=== PATIENT | male | born 1955 | race Caucasian/White ===

== ENCOUNTER → 2016-07-29 | Outpatient (CLI) | payer OTHER ==
[~2016-07-29] MED LIST: SULF800T23 PO
--- NOTE | 2016-07-29 09:00 | DIAGNOSTIC IMAGING REPORT ---
LEFT KNEE 1 OR 2 VIEWS ROUTINE CLINICAL HISTORY: Left knee pain COMPARISON: None. DISCUSSION: There are osteoarthritic changes present with narrowing medial joint compartment. There are medial joint compartment spurs. There are tiny dorsal patellar spurs. There are no acute fractures. There are no erosive or destructive changes. IMPRESSION: Moderate osteoarthritic change. Electronically signed by: Ron Haynes M.D. 07/29/2016 8:59 AM Dictated Date/Time: 07/29/2016 8:58 AM
--- NOTE | 2016-07-29 09:01 | DIAGNOSTIC IMAGING REPORT ---
RIGHT KNEE 1 OR 2 VIEWS ROUTINE CLINICAL HISTORY: Right knee pain COMPARISON: None. DISCUSSION: There is marked narrowing of the medial joint compartment. This results in a mild varus deformity. There are medial and lateral joint compartment spurs. There are small dorsal patellar spurs. There are no acute fractures. No destructive lesions are evident. IMPRESSION: Moderately advanced osteoarthritic change. Electronically signed by: Ron Haynes M.D. 07/29/2016 8:59 AM Dictated Date/Time: 07/29/2016 8:59 AM
[2016-07-29 11:26] LABS: ALT/SGPT 41 U/L (12-78); BLOOD UREA NITROGEN 18 mg/dl (7-18); CALCIUM 8.7 mg/dl (8.5-10.1); CARBON DIOXIDE 24 mmol/L (21-32); CHLORIDE 106 mmol/L (98-107); GLUCOSE 115 mg/dl (70-99); SODIUM 137 mmol/L (136-145)
[2016-07-29 11:27] LABS: ESTIMATED AVERAGE GLUCOSE 123 mg/dl; HA1C FLAG Normal (Normal)
[2016-07-29 11:29] LABS: ALB/GLOB RATIO 1.1 (0.9-2); ALKALINE PHOSPHATASE 74 U/L (45-117); AST/SGOT 30 U/L (15-37)
== END | disposition home or self-care (01) ==
LOC: C.RADBC 08:21
PROVIDERS: ATTEND Family Medicine
DX: M25.561 Pain in right knee (principal); M25.562 Pain in left knee; I10 Essential (primary) hypertension; R73.03 Prediabetes

== ENCOUNTER → 2017-02-18 | Outpatient (CLI) | payer OTHER ==
[2017-02-18 11:11] LABS: HEMATOCRIT 44.9 % (42-52); MEAN CELL VOLUME 89.3 fL (80-100); MEAN CORPUSCULAR HEMOGLOBIN 28.8 pg (25-34); MEAN CORPUSCULAR HGB CONC 32.3 g/dl (32-36); MEAN PLATELET VOLUME 12.2 fL (7.4-10.4); PLATELET COUNT 212 K/uL (130-400); RED BLOOD COUNT 5.03 M/uL (4.7-6.1); WHITE BLOOD COUNT 6.23 K/uL (4.8-10.8)
[2017-02-18 11:30] LABS: ALT/SGPT 47 U/L (12-78); AST/SGOT 36 U/L (15-37); BLOOD UREA NITROGEN 19 mg/dl (7-18); BUN/CREATININE RATIO 22.3 (10-20); CALCIUM 8.9 mg/dl (8.5-10.1); CARBON DIOXIDE 27 mmol/L (21-32); CHLORIDE 106 mmol/L (98-107); CHOLESTEROL 136 mg/dl (0-200); CREATININE 0.87 mg/dl (0.60-1.40); GLUCOSE 112 mg/dl (70-99); POTASSIUM 4.3 mmol/L (3.5-5.1); SODIUM 139 mmol/L (136-145); TRIGLYCERIDES 39 mg/dl (0-150); VERY LOW DENSITY LIPOPROT CALC 8 mg/dl
[2017-02-18 11:32] LABS: ALB/GLOB RATIO 1.2 (0.9-2); ALKALINE PHOSPHATASE 74 U/L (45-117); CHOLESTEROL/HDL RATIO 2.7; ESTIMATED AVERAGE GLUCOSE 123 mg/dl; HA1C FLAG Normal (Normal); HDL CHOLESTEROL 51 mg/dl; LDL CHOLESTEROL CALCULATED 77 mg/dl
== END | disposition home or self-care (01) ==
LOC: C.LABBC 07:36
PROVIDERS: ATTEND Internal Medicine
DX: Z00.00 Encounter for general adult medical examination without abnormal findings (principal); I10 Essential (primary) hypertension; R73.03 Prediabetes

== ENCOUNTER → 2017-08-15 | Outpatient (CLI) | payer OTHER | END | disposition home or self-care (01) | LOC: C.LAB 18:33 | PROVIDERS: ATTEND Internal Medicine | DX: R73.03 Prediabetes (principal) ==

== ENCOUNTER 2020-08-13 08:29 | Inpatient (IN) ==
[2020-08-13] MEDS ORDERED: SODIUM CHLORIDE 0.9% 1000ML 1,000 ML IV STA (09:37)
[2020-08-13] MEDS ORDERED: ACETAMINOPHEN 1000 MG/100 ML IV IV STA (09:40)
--- NOTE | 2020-08-13 09:55 | Emergency Department Note ---
History of Present Illness General Chief complaint: Shortness of Breath/Dyspnea Stated complaint: COVID+, SOB, LOW OXYGEN LEVEL Time Seen by Provider: 08/13/20 09:12 History of Present Illness 65-year-old male who presents to emergency department with complaint of symptoms of COVID-19, including cough, fever/chills and headache. These are the patient's primary complaints, however also complains of fatigue and overall not feeling well. The patient reports that he has had symptoms now for 8 days. He reports any increasing shortness of breath and intermittent fevers. His bought him a pulse oximeter at home, and noted that his oxygen levels were varying between about 83% and 93% on room air. The patient has been taking Tylenol, Mucinex and guaifenesin without significant relief. The patient has not had a COVID-19 test since symptom onset. He rates his overall discomfort a 3 out of 10. He denies any chest pain, abdominal pain, diarrhea or urinary symptoms. Home Medications Medication Instructions Recorded Confirmed Type Centrum Silver Men 1 tab PO QAM 02/27/19 08/13/20 History losartan 50 mg tablet 50 mg PO QAM #90 tab 06/08/20 08/13/20 Rx mupirocin 2 % topical ointment 1 applic TOP BID PRN gm 06/24/20 08/13/20 History Allergies Allergy/AdvReac Type Severity Reaction Status Date / Time Sulfa (Sulfonamide Allergy Unknown HIVES ON Verified 08/13/20 09:49 Antibiotics) BACK Past Med/Surg History Medical History Degenerative disc disease Lumbar Diverticulosis Hypertension Osteoarthritis B/L knee and Lumbar Osteoporosis pt denies Tubular adenoma of colon Screening colonoscopy (03/23) w/ tubular adenoma x2. Recommended repeat colonoscopy in 5 years (03/2024) Surgical History H/O colonoscopy H/O hand surgery right- 3rd phalanx (r/t infection) History of esophagogastroduodenoscopy (EGD) History of tooth extraction History of total knee replacement (~2017) RT Hx of vasectomy S/P left inguinal hernia repair (07/20/20) Left Open Inguinal Hernia Repair with Prolite and Bard Mesh Dr. 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 Beliefs That Will Affect Care: None marital status: Current Living Situation: Spouse current occupational status: employed How many Children do You have: 2 Feels Safe at Home: Yes Dental Care, Regularly: Yes Physical Activity Frequency: Does not Exercise Assistive Devices: Glasses Review of Systems 10 system review was performed and was negative except for pertinent positives and negatives as indicated in history of present illness Physical Exam Vital Signs Vital Signs - 24 hr 08/13/20 08:48 08/13/20 09:37 08/13/20 10:52 Temperature 36.9 C Temperature Source Temporal Artery Scan Pulse Rate 111 H 91 H Pulse Rate from SpO2 Sensor 93 H Respiratory Rate 18 27 H Respiratory Effort / Characteristics Blood Pressure 127/77 116/73 Blood Pressure Mean 93 87 Pulse Oximetry 94 90 90 Oxygen Delivery Method Room Air Room Air Room Air Oxygen Flow Rate Sepsis Recent Fever Within 48 Hours Yes Sepsis New/Unexplained Change in Mental Status N/A Sepsis Action Taken by Nursing No Action Required 08/13/20 10:53 08/13/20 11:00 08/13/20 11:15 Temperature Temperature Source Pulse Rate 90 94 H Pulse Rate from SpO2 Sensor 90 94 H Respiratory Rate 36 H 23 Respiratory Effort / Characteristics Non-Labored Spontaneous Blood Pressure 131/78 115/70 Blood Pressure Mean 95 85 Pulse Oximetry 93 89 L 95 Oxygen Delivery Method Room Air Nasal Cannula Oxygen Flow Rate 2 Sepsis Recent Fever Within 48 Hours Sepsis New/Unexplained Change in Mental Status Sepsis Action Taken by Nursing 08/13/20 11:30 08/13/20 11:45 08/13/20 12:00 Temperature Temperature Source Pulse Rate 85 85 Pulse Rate from SpO2 Sensor 85 Respiratory Rate 31 H 40 H 40 H Respiratory Effort / Characteristics Non-Labored Spontaneous Blood Pressure 114/64 124/61 Blood Pressure Mean 80 82 Pulse Oximetry 95 97 97 Oxygen Delivery Method Nasal Cannula Nasal Cannula Nasal Cannula Oxygen Flow Rate 2 2 2 Sepsis Recent Fever Within 48 Hours Sepsis New/Unexplained Change in Mental Status Sepsis Action Taken by Nursing 08/13/20 12:30 08/13/20 12:51 08/13/20 13:00 Temperature Temperature Source Pulse Rate 79 82 88 Pulse Rate from SpO2 Sensor 80 82 88 Respiratory Rate 30 H 26 H 23 Respiratory Effort / Characteristics Spontaneous Blood Pressure 111/70 123/79 125/76 Blood Pressure Mean 83 93 92 Pulse Oximetry 91 95 96 Oxygen Delivery Method Oxygen Flow Rate Sepsis Recent Fever Within 48 Hours Sepsis New/Unexplained Change in Mental Status Sepsis Action Taken by Nursing 08/13/20 14:00 08/13/20 14:13 08/13/20 14:30 Temperature Temperature Source Pulse Rate 82 78 73 Pulse Rate from SpO2 Sensor 81 79 73 Respiratory Rate 29 H 13 28 H Respiratory Effort / Characteristics Spontaneous Spontaneous Blood Pressure 92/50 L 109/73 126/71 Blood Pressure Mean 64 85 89 Pulse Oximetry 94 95 94 Oxygen Delivery Method Oxygen Flow Rate Sepsis Recent Fever Within 48 Hours Sepsis New/Unexplained Change in Mental Status Sepsis Action Taken by Nursing 08/13/20 15:00 08/13/20 15:30 08/13/20 16:00 Temperature Temperature Source Pulse Rate 76 76 75 Pulse Rate from SpO2 Sensor 76 76 75 Respiratory Rate 33 H 29 H 26 H Respiratory Effort / Characteristics Blood Pressure 116/69 103/56 L 98/51 L Blood Pressure Mean 84 71 66 Pulse Oximetry 93 96 92 Oxygen Delivery Method Oxygen Flow Rate Sepsis Recent Fever Within 48 Hours Sepsis New/Unexplained Change in Mental Status Sepsis Action Taken by Nursing CONSTITUTIONAL: Healthy and well nourished. Alert and oriented X 3. Patient is tachypneic with a frequent nonproductive cough. HEENT: Normocephalic, atraumatic. Pupils equal, round and reactive. Ears and nares are clear. Examination of the oropharynx shows dry mucous membranes. No posterior pharyngeal erythema, tonsillar hypertrophy or exudates. NECK: Full active range of motion without discomfort. No JVD or carotid bruits. LYMPHATICS: No cervical chain adenopathy. RESPIRATORY: Clear to auscultation bilaterally with no wheezing, crackles, rhonchi or stridor. CARDIOVASCULAR: Regular rate and rhythm with no murmurs, rubs or gallops. GASTROINTESTINAL: Bowel sounds present in all quadrants. Soft and nontender to palpation. MUSCULOSKELETAL: Full range of motion of all joints without discomfort. INTEGUMENTARY: No rash or other significant dermatologic conditions noted. HEMATOLOGIC: No ecchymosis or petechiae. PSYCHIATRIC: Positive affect. NEUROLOGIC: Cranial nerves II-XII grossly intact. No focal neurologic deficits noted. Course Course Patient history and physical exam were performed. Nurses notes were reviewed. Vital signs were reviewed, again showing that the patient is tachypneic. His O2 saturation was 94% on room air in triage. He is not febrile or hypotensive. IV access was established, and labs were drawn. The patient was hydrated with a liter of normal saline. He was also ministered IV Tylenol for his headache. An ECG was performed and was normal. The patient was placed on quality assurance monitor final while in the emergency department. Labs were reviewed to show a mild thrombocytopenia with normal white count. Coagulation studies shows a mildly elevated PTT, otherwise PT/INR are normal. Sodium is low at 131, otherwise remaining electrolytes are grossly normal. Patient also has an isolated elevated AST of 68, with ALT, alkaline phosphatase and total bilirubin being normal. Urinalysis is not suggestive of infection with proteinuria, ketonuria and hematuria. Cephaiad testing shows that the patient is positive for COVID- 19, negative for influenza and RSV. A portable chest x-ray shows multifocal pneumonia. Troponin was normal. It is noted that while the patient was coughing, nursing reported that the patient's O2 saturation did drop to 88% on room air. The patient was administer ed O2 via nasal cannula at 2 L/min, and maintain his oxygen saturations in the mid 90s throughout the remainder of his ED evaluation. He still continued to be tachypneic. Findings were discussed with the patient, as well as his via telephone conversation as she was not allowed in his room during the work-up. I also discussed the case further with Dr. Hunt, ED attending physician, who park mmended consulting the hospitalist service for multifocal pneumonia with hypoxia, tachypnea and hyponatremia. The case was then discussed with the [facility] Hospitalist service, who will evaluate the patient. The patient was ordered and administered Decadron 10 mg IVP. Please see hospitalist dictations for further treatment and final disposition. Administered Medications Discontinued Medications Acetaminophen (Acetaminophen 1000 Mg/100 Ml Iv) 1,000 mg IV NOW STA Stop: 08/13/20 09:41 Last Admin: 08/13/20 10:59 Dose: 1,000 mg Documented by: [id number] Dexamethasone (Dexamethasone Sod Inj 10 Mg/Ml Vial) 10 mg IV NOW ONE Stop: 08/13/20 12:43 Last Admin: 08/13/20 14:10 Dose: 10 mg Documented by: [id number] Sodium Chloride (Nss 1000ml) 1,000 mls @ 999 mls/hr IV .Q1H1M STA Stop: 08/13/20 10:37 Last Infusion: 08/13/20 12:03 Dose: 0 mls/hr Documented by: [id number] Admin: 08/13/20 10:59 Dose: 999 mls/hr Documented by: [id number] Medical Decision Making Medical Records Attestation: I reviewed the patient's medical records. Home Medications Current Medication List: was personally reviewed by me Laboratory Data Attestation: I reviewed the patient's lab results. Result diagrams: 08/13/20 09:56 08/13/20 09:56 Lab Results 08/13/20 08/13/20 08/13/20 Range/Units 09:56 09:56 09:56 WBC 6.43 (4.8-10.8) K/uL RBC 5.35 (4.7-6.1) M/uL Hgb 15.6 (14.0-18.0) g/dL Hct 45.4 (42-52) % MCV 84.9 (80-100) fL MCH 29.2 (25-34) pg MCHC 34.4 (32-36) g/dL RDW Std Deviation 39.9 (36.4-46.3) fL RDW Coeff of Judd 12.8 (11.5-14.5) % Plt Count 128 L (130-400) K/uL MPV 11.4 H (7.4-10.4) fL Immature Gran % (Auto) 0.3 % Neut % (Auto) 86.2 % Lymph % (Auto) 8.9 % [place] % (Auto) 4.4 % Eos % (Auto) 0.0 % Baso % (Auto) 0.2 % Neut # (Auto) 5.55 (1.4-6.5) K/uL Lymph # (Auto) 0.57 L (1.2-3.4) K/uL [place] # (Auto) 0.28 (0.11-0.59) K/uL Eos # (Auto) 0.00 (0-0.5) K/uL Baso # (Auto) 0.01 (0-0.2) K/uL Immature Gran # (Auto) 0.02 (0.00-0.02) K/uL PT 10.5 (9.0-12.0) Seconds INR 1.0 (0.9-1.1) APTT 31.4 H (21.0-31.0) Seconds PTT Ratio 1.2 Fibrinogen (184-400) mg/dl Sodium 131 L (136-145) mmol/L Potassium 3.5 (3.5-5.1) mmol/L Chloride 98 (98-107) mmol/L Carbon Dioxide 24 (21-32) mmol/L Anion Gap 8.0 (3-11) BUN 15 (7-18) mg/dl Creatinine 1.03 (0.6-1.4) mg/dl Est Cr Clr Drug Dosing 88.8 ml/min Est GFR ( Amer) 88.6 Est GFR (Non-Af Amer) 76.4 BUN/Creatinine Ratio 14.3 (10-20) Glucose 109 H (70-99) mg/dl Lactate (0.4-2.0) mmol/L Calcium 9.1 (8.5-10.1) mg/dl Magnesium 2.1 (1.8-2.4) mg/dl Total Bilirubin 0.8 (0.2-1) mg/dl AST 68 H (15-37) U/L ALT 42 (12-78) U/L Alkaline Phosphatase 72 (45-117) U/L Lactate Dehydrogenase (87-241) U/L Troponin I 0.016 (0-0.045) ng/ml C-Reactive Protein (0-0.29) mg/dl Total Protein 7.3 (6.4-8.2) gm/dl Albumin 3.5 (3.4-5.0) gm/dl Globulin 3.8 (2.5-4.0) gm/dl Albumin/Globulin Ratio 0.9 (0.9-2) Procalcitonin (0-0.5) ng/ml Urine Color Urine Appearance (Clear) Urine pH (4.5-7.5) Ur Specific [place] (1.000-1.030) Urine Protein (Negative) Urine Glucose (UA) (Negative) Urine Ketones (Negative) Urine Blood (Negative) Urine Nitrite (Negative) Urine Bilirubin (Negative) Urine Urobilinogen (Negative) Ur Leukocyte Esterase (Negative) Urine WBC (Auto) (0-5) /hpf Urine RBC (Auto) (0-4) /hpf U Hyaline Cast (Auto) (0-5) /lpf U Epithel Cells (Auto) (0-5) /lpf Urine Bacteria (Auto) (Negative) COVID-19 Eval Order SARS-CoV-2 (PCR) (Negative) Influenza Type A (PCR) (Neg) Influenza Type B (PCR) (Neg) RSV (RT-PCR) (Neg) 08/13/20 08/13/20 08/13/20 Range/Units 09:56 09:56 10:45 WBC (4.8-10.8) K/uL RBC (4.7-6.1) M/uL Hgb (14.0-18.0) g/dL Hct (42-52) % MCV (80-100) fL MCH (25-34) pg MCHC (32-36) g/dL RDW Std Deviation (36.4-46.3) fL RDW Coeff of Judd (11.5-14.5) % Plt Count (130-400) K/uL MPV (7.4-10.4) fL Immature Gran % (Auto) % Neut % (Auto) % Lymph % (Auto) % [place] % (Auto) % Eos % (Auto) % Baso % (Auto) % Neut # (Auto) (1.4-6.5) K/uL Lymph # (Auto) (1.2-3.4) K/uL [place] # (Auto) (0.11-0.59) K/uL Eos # (Auto) (0-0.5) K/uL Baso # (Auto) (0-0.2) K/uL Immature Gran # (Auto) (0.00-0.02) K/uL PT (9.0-12.0) Seconds INR (0.9-1.1) APTT (21.0-31.0) Seconds PTT Ratio Fibrinogen (184-400) mg/dl Sodium (136-145) mmol/L Potassium (3.5-5.1) mmol/L Chloride (98-107) mmol/L Carbon Dioxide (21-32) mmol/L Anion Gap (3-11) BUN (7-18) mg/dl Creatinine (0.6-1.4) mg/dl Est Cr Clr Drug Dosing ml/min Est GFR ( Amer) Est GFR (Non-Af Amer) BUN/Creatinine Ratio (10-20) Glucose (70-99) mg/dl Lactate 1.5 (0.4-2.0) mmol/L Calcium (8.5-10.1) mg/dl Magnesium (1.8-2.4) mg/dl Total Bilirubin (0.2-1) mg/dl AST (15-37) U/L ALT (12-78) U/L Alkaline Phosphatase (45-117) U/L Lactate Dehydrogenase (87-241) U/L Troponin I (0-0.045) ng/ml C-Reactive Protein (0-0.29) mg/dl Total Protein (6.4-8.2) gm/dl Albumin (3.4-5.0) gm/dl Globulin (2.5-4.0) gm/dl Albumin/Globulin Ratio (0.9-2) Procalcitonin 0.12 (0-0.5) ng/ml Urine Color Urine Appearance (Clear) Urine pH (4.5-7.5) Ur Specific [place] (1.000-1.030) Urine Protein (Negative) Urine Glucose (UA) (Negative) Urine Ketones (Negative) Urine Blood (Negative) Urine Nitrite (Negative) Urine Bilirubin (Negative) Urine Urobilinogen (Negative) Ur Leukocyte Esterase (Negative) Urine WBC (Auto) (0-5) /hpf Urine RBC (Auto) (0-4) /hpf U Hyaline Cast (Auto) (0-5) /lpf U Epithel Cells (Auto) (0-5) /lpf Urine Bacteria (Auto) (Negative) COVID-19 Eval Order [facility]FluRsv at [facility] SARS-CoV-2 (PCR) (Negative) Influenza Type A (PCR) (Neg) Influenza Type B (PCR) (Neg) RSV (RT-PCR) (Neg) 08/13/20 08/13/20 08/13/20 Range/Units 10:45 12:47 15:34 WBC (4.8-10.8) K/uL RBC (4.7-6.1) M/uL Hgb (14.0-18.0) g/dL Hct (42-52) % MCV (80-100) fL MCH (25-34) pg MCHC (32-36) g/dL RDW Std Deviation (36.4-46.3) fL RDW Coeff of Judd (11.5-14.5) % Plt Count (130-400) K/uL MPV (7.4-10.4) fL Immature Gran % (Auto) % Neut % (Auto) % Lymph % (Auto) % [place] % (Auto) % Eos % (Auto) % Baso % (Auto) % Neut # (Auto) (1.4-6.5) K/uL Lymph # (Auto) (1.2-3.4) K/uL [place] # (Auto) (0.11-0.59) K/uL Eos # (Auto) (0-0.5) K/uL Baso # (Auto) (0-0.2) K/uL Immature Gran # (Auto) (0.00-0.02) K/uL PT (9.0-12.0) Seconds INR (0.9-1.1) APTT (21.0-31.0) Seconds PTT Ratio Fibrinogen 531 H (184-400) mg/dl Sodium (136-145) mmol/L Potassium (3.5-5.1) mmol/L Chloride (98-107) mmol/L Carbon Dioxide (21-32) mmol/L Anion Gap (3-11) BUN (7-18) mg/dl Creatinine (0.6-1.4) mg/dl Est Cr Clr Drug Dosing ml/min Est GFR ( Amer) Est GFR (Non-Af Amer) BUN/Creatinine Ratio (10-20) Glucose (70-99) mg/dl Lactate (0.4-2.0) mmol/L Calcium (8.5-10.1) mg/dl Magnesium (1.8-2.4) mg/dl Total Bilirubin (0.2-1) mg/dl AST (15-37) U/L ALT (12-78) U/L Alkaline Phosphatase (45-117) U/L Lactate Dehydrogenase (87-241) U/L Troponin I (0-0.045) ng/ml C-Reactive Protein (0-0.29) mg/dl Total Protein (6.4-8.2) gm/dl Albumin (3.4-5.0) gm/dl Globulin (2.5-4.0) gm/dl Albumin/Globulin Ratio (0.9-2) Procalcitonin (0-0.5) ng/ml Urine Color Dark Yellow Urine Appearance Clear (Clear) Urine pH 5.5 (4.5-7.5) Ur Specific [place] 1.024 (1.000-1.030) Urine Protein 2+ H (Negative) Urine Glucose (UA) Negative (Negative) Urine Ketones 3+ H (Negative) Urine Blood 1+ H (Negative) Urine Nitrite Negative (Negative) Urine Bilirubin Negative (Negative) Urine Urobilinogen Negative (Negative) Ur Leukocyte Esterase Negative (Negative) Urine WBC (Auto) 1-5 (0-5) /hpf Urine RBC (Auto) 5-10 H (0-4) /hpf U Hyaline Cast (Auto) 10-30 H (0-5) /lpf U Epithel Cells (Auto) 20-30 H (0-5) /lpf Urine Bacteria (Auto) Negative (Negative) COVID-19 Eval Order SARS-CoV-2 (PCR) POSITIVE A* (Negative) Influenza Type A (PCR) Negative (Neg) Influenza Type B (PCR) Negative (Neg) RSV (RT-PCR) Negative (Neg) 08/13/20 08/13/20 Range/Units 15:34 15:34 WBC (4.8-10.8) K/uL RBC (4.7-6.1) M/uL Hgb (14.0-18.0) g/dL Hct (42-52) % MCV (80-100) fL MCH (25-34) pg MCHC (32-36) g/dL RDW Std Deviation (36.4-46.3) fL RDW Coeff of Judd (11.5-14.5) % Plt Count (130-400) K/uL MPV (7.4-10.4) fL Immature Gran % (Auto) % Neut % (Auto) % Lymph % (Auto) % [place] % (Auto) % Eos % (Auto) % Baso % (Auto) % Neut # (Auto) (1.4-6.5) K/uL Lymph # (Auto) (1.2-3.4) K/uL [place] # (Auto) (0.11-0.59) K/uL Eos # (Auto) (0-0.5) K/uL Baso # (Auto) (0-0.2) K/uL Immature Gran # (Auto) (0.00-0.02) K/uL PT (9.0-12.0) Seconds INR (0.9-1.1) APTT (21.0-31.0) Seconds PTT Ratio Fibrinogen (184-400) mg/dl Sodium (136-145) mmol/L Potassium (3.5-5.1) mmol/L Chloride (98-107) mmol/L Carbon Dioxide (21-32) mmol/L Anion Gap (3-11) BUN (7-18) mg/dl Creatinine (0.6-1.4) mg/dl Est Cr Clr Drug Dosing ml/min Est GFR ( Amer) Est GFR (Non-Af Amer) BUN/Creatinine Ratio (10-20) Glucose (70-99) mg/dl Lactate (0.4-2.0) mmol/L Calcium (8.5-10.1) mg/dl Magnesium (1.8-2.4) mg/dl Total Bilirubin (0.2-1) mg/dl AST (15-37) U/L ALT (12-78) U/L Alkaline Phosphatase (45-117) U/L Lactate Dehydrogenase 373 H (87-241) U/L Troponin I (0-0.045) ng/ml C-Reactive Protein 10.20 H (0-0.29) mg/dl Total Protein (6.4-8.2) gm/dl Albumin (3.4-5.0) gm/dl Globulin (2.5-4.0) gm/dl Albumin/Globulin Ratio (0.9-2) Procalcitonin (0-0.5) ng/ml Urine Color Urine Appearance (Clear) Urine pH (4.5-7.5) Ur Specific [place] (1.000-1.030) Urine Protein (Negative) Urine Glucose (UA) (Negative) Urine Ketones (Negative) Urine Blood (Negative) Urine Nitrite (Negative) Urine Bilirubin (Negative) Urine Urobilinogen (Negative) Ur Leukocyte Esterase (Negative) Urine WBC (Auto) (0-5) /hpf Urine RBC (Auto) (0-4) /hpf U Hyaline Cast (Auto) (0-5) /lpf U Epithel Cells (Auto) (0-5) /lpf Urine Bacteria (Auto) (Negative) COVID-19 Eval Order SARS-CoV-2 (PCR) (Negative) Influenza Type A (PCR) (Neg) Influenza Type B (PCR) (Neg) RSV (RT-PCR) (Neg) Imaging Data Attestation: I personally reviewed and interpreted this imaging study as follows: My Impression: My interpretation of reportable chest x-ray is concerning for multifocal pneumonia, consistent with pattern of COVID-19. No cardiac prominence or pneumothorax appreciated. Radiologist report was also reviewed. Radiologist's Impression: XR chest 1V portable CLINICAL HISTORY: SEPSIS COMPARISON STUDY: 11/05/2009 FINDINGS: The heart is the upper limits of normal in size. There is aortic tortuosity/ectasia. There are bilateral interstitial opacities suspicious for a multifocal pneumonia. Clinical and radiographic follow-up is recommended.[ IMPRESSION: Interval development of bilateral interstitial pulmonary opacities, suspicious for a multifocal pneumonia. Clinical and radiographic follow-up is recommended ECG Data Attestation: I personally reviewed and interpreted this ECG as follows: Indication: + chest pain, + SOB/dyspnea and + weakness Rate (beats per minute): 95 Rhythm: + normal sinus ECG Intervals/blocks: + Normal QRS ECG [place]: + Normal ECG ST segments: + Normal ST segments Comparison ECG Date: from (07/09/2020) Change: no significant change Blood Pressure Blood Pressure Findings: Normal blood pressure MDM Narrative Cardiac monitoring: An order was placed for continuous cardiac monitoring. The monitor shows a rate of 95 bpm with a normal sinus rhythm. monitor worker history was reviewed throughout the evaluation, and no dysrhythmias were noted. Patient presents emergency department with primary complaint of cough secondary to an upper respiratory infection. The patient has tested positive today for COVID-19. He has a multifocal pneumonia with hypoxia and tachypnea. I do not feel that the patient is stable for outpatient management. I do not suspect any other acute cardiopulmonary etiologies, such as myocardial infarction, pulmonary embolus, CHF, pericarditis or myocarditis. Troponin was normal. Impression & Plan Multifocal pneumonia, COVID-19 virus infection, Acute hyponatremia Discharge Plan Visit Data Chief Complaint: Shortness of Breath/Dyspnea Stated Complaint: COVID+, SOB, LOW OXYGEN LEVEL ED Provider: Dru Hunt ED Midlevel Provider: Aram Ramirez Discharge Problem: Multifocal pneumonia, COVID-19 virus infection, Acute hyponatremia Forms Stand Alone Forms: My [facility] [employer] Prescriptions Prescriptions: No Action losartan 50 mg tablet 50 mg PO QAM Qty: 90 RF: 3 mupirocin 2 % ointment 1 applic TOP BID PRN (Reason: Skin Irritation) RF: 0 Centrum Silver Men 300-600-300 mcg Tablet 1 tab PO QAM RF: 0
[2020-08-13 10:13] LABS: Basophils # (auto) 0.01 K/uL (0-0.2); Basophils % (auto) 0.2 %; Hematocrit (blood only) 45.4 % (42-52); Hemoglobin 15.6 g/dL (14.0-18.0); Immature Granulocytes # (auto) 0.02 K/uL (0.00-0.02); Immature Granulocytes % (auto) 0.3 %; Lymphocytes # (auto) 0.57 K/uL (1.2-3.4); Lymphocytes % (auto) 8.9 %; Mean Corpuscular Hemoglobin 29.2 pg (25-34); Mean Corpuscular Hgb Conc 34.4 g/dL (32-36); Mean Corpuscular Volume 84.9 fL (80-100); Mean Platelet Volume 11.4 fL (7.4-10.4); Monocytes # (auto) 0.28 K/uL (0.11-0.59); Monocytes % (auto) 4.4 %; Neutrophils # (auto) 5.55 K/uL (1.4-6.5); Neutrophils % (auto) 86.2 %; Platelet Count 128 K/uL (130-400); RDW Coefficient of Variation 12.8 % (11.5-14.5); RDW Standard Deviation 39.9 fL (36.4-46.3); Red Blood Count 5.35 M/uL (4.7-6.1); White Blood Count 6.43 K/uL (4.8-10.8)
--- NOTE | 2020-08-13 10:19 | XRay Report ---
XR chest 1V portable CLINICAL HISTORY: SEPSIS COMPARISON STUDY: 11/05/2009 FINDINGS: The heart is the upper limits of normal in size. There is aortic tortuosity/ectasia. There are bilateral interstitial opacities suspicious for a multifocal pneumonia. Clinical and radiographic follow-up is recommended.[ IMPRESSION: Interval development of bilateral interstitial pulmonary opacities, suspicious for a mult ifocal pneumonia. Clinical and radiographic follow-up is recommended ACT 112: Negative or not required by law. Electronically signed by: Ron Haynes M.D. 08/13/2020 10:18 AM
[2020-08-13 10:22] LABS: Partial Thromboplastin Ratio 1.2; Partial Thromboplastin Time 31.4 Seconds (21.0-31.0); Prothrombin Time 10.5 Seconds (9.0-12.0)
[2020-08-13 10:26] LABS: Albumin Level 3.5 gm/dl (3.4-5.0); BUN Creatinine Ratio 14.3 (10-20); Calcium 9.1 mg/dl (8.5-10.1); Creatinine Clr Calc Pharmacy 88.8 ml/min; Est GFR (African American) 88.6; Est GFR (Non-African American) 76.4; Magnesium 2.1 mg/dl (1.8-2.4); Potassium 3.5 mmol/L (3.5-5.1)
[2020-08-13 10:30] LABS: Albumin Globulin Ratio 0.9 (0.9-2); Bilirubin,Total 0.8 mg/dl (0.2-1); Globulin 3.8 gm/dl (2.5-4.0); Total Protein 7.3 gm/dl (6.4-8.2); Troponin I 0.016 ng/ml (0-0.045)
[2020-08-13 12:01] LABS: Influenza A virus by PCR Negative (Neg); Influenza B virus by PCR Negative (Neg); RSV by PCR Negative (Neg)
[2020-08-13 12:19] LABS: SARS CoV2 RNA(COVID-19) InHosp POSITIVE (Negative)
[2020-08-13] MEDS ORDERED: DEXAMETHASONE SOD INJ 10 MG/ML VIAL IV ONE (12:42)
[2020-08-13 13:03] LABS: Appearance Urine Clear (Clear); Bacteria Urine Automated Negative (Negative); Bilirubin Urine Negative (Negative); Blood Urine 1+ (Negative); Color Urine Dark Yellow; Epithelial Cell Urine Auto 20-30 /lpf (0-5); Glucose Urine UA Negative (Negative); Ketones Urine 3+ (Negative); Leukocyte Esterase Urine Negative (Negative); Nitrite Urine Negative (Negative); Protein Urine 2+ (Negative); Specific Gravity Urine 1.024 (1.000-1.030); Urobilinogen Urine Negative (Negative); pH Urine 5.5 (4.5-7.5)
--- NOTE | 2020-08-13 15:13 | History & Physical Report ---
Date of Service August 13, 2020 Assessment & Plan (1) COVID-19: Day 8 of COVID-19 infection - Hypoxia requiring 2L NC to maintain SPO2 >90% - Dexamethasone 10mg given in ER, continue 6mg IV daily for 10 days, change to oral discharged by then - Patient and consented for convalescent plasma, will give 1 unit - Fibrinogen, LDH, CRP, PCT pending, follow biomarkers. If elevated as in severe disease, will adjust VTE prophy to high dose - Oxygen titrate to keep SPO2 >90%, HFNC on standby if needed - Self proning and rotation at intervals 30 min - 2 hours as tolerated (2) Prediabetes: No acute needs - will check FSBG q 8 while on steriods, no action unless >200 - follow up with PCP (3) Hypertension: Continue ARB - no acute needs (4) Hyponatremia: NA 131 decreased oral intake while at home, patient received 1L 0.9% saline in the EMD - encourage diet - should increase on its own (5) DVT prophylaxis: As above, adjust therapy based on hypercoag and inflamitory markers- 0.5mg/kg bid History of Present Illness Primary Care Provider: Elias Ndiaye, DO 65 YOM with past medical history of pre-diabetes, BPH, osteoarthritis, HTN. Patient comes in today for worsening shortness of breath and hypoxia recorded on home pulse ox of 83%. The patient went to [facility] on Monday, and started feeling ill on the 05 of August, with headache, fevers, chills. His shortness of breath has been increasing and he has been recording his pulse oximetry at home with home portable monitor. Reports 83% today and on arrival to the ER he was 88%. The patient is experiencing, non-productive cough, cyclical fevers, joint pains, and headache. He had one episode of diarrhea last night. He has only been taking Tylenol for his fevers, Mucinex, and guaifenesin at home, with mild relief of symptoms. Patient is at day 8 of his symptoms and his first COVID test was today. The patient will be admitted for hypoxia, dexamethasone, offered convalescent plasma. I have spoken to and updated his Neida upon his admission. Allergies Allergy/AdvReac Type Severity Reaction Status Date / Time Sulfa (Sulfonamide Allergy Unknown HIVES ON Verified 08/13/20 09:49 Antibiotics) BACK Home Medications Medication Instructions Recorded Confirmed Type Centrum Silver Men 1 tab PO QAM 02/27/19 08/13/20 History losartan 50 mg tablet 50 mg PO QAM #90 tab 06/08/20 08/13/20 Rx mupirocin 2 % topical ointment 1 applic TOP BID PRN gm 06/24/20 08/13/20 History Past Med/Surg History Medical History (Updated 08/13/20 @ 22:25 by Deandra Avalos MD) BPH NOS w ur obs/LUTS Degenerative disc disease Lumbar Diverticulosis Hypertension Osteoarthritis B/L knee and Lumbar Osteoporosis pt denies Prediabetes Tubular adenoma of colon Screening colonoscopy (03/23) w/ tubular adenoma x2. Recommended repeat colonoscopy in 5 years (03/2024) Surgical History H/O colonoscopy H/O hand surgery right- 3rd phalanx (r/t infection) History of esophagogastroduodenoscopy (EGD) History of tooth extraction History of total knee replacement (~2017) RT Hx of vasectomy S/P left inguinal hernia repair (07/20/20) Left Open Inguinal Hernia Repair with Prolite and Bard Mesh Dr. Don 07/20/2020 Family History Mother Diabetes Congestive heart failure Hypertension Stroke Grandfather (Maternal) Prostate cancer Other No family history of adverse response to anesthesia Denies family history of Myocardial infarction Colorectal cancer Social History Smoking Status: Never smoker Tobacco Type: Smokeless Tobacco (Dip or Chew) Second Hand Exposure: No; Hx Alcohol Use: No Hx Substance Use: No Preferred Language: Danish Communication Ability: Effective Visual Impairment: Limited Hearing Ability: Normal Clinical Trials Manager Required: No Beliefs That Will Affect Care: None marital status: Current Living Situation: Spouse current occupational status: employed How many Children do You have: 2 Other Information That Helps Us Care for You: No Feels Safe at Home: Yes Safety Concerns: Feels Safe At This Time Dental Care, Regularly: Yes Physical Activity Frequency: Does not Exercise Assistive Devices: Oxygen - Continuous Review of Systems Review of Systems: REVIEW OF SYSTEMS: Constitutional: No fever, sweats or chills Eyes: No diplopia, no worsening or blurred vision ENT: normal hearing, no trouble swallowing Respiratory: No cough, sputum, dyspnea at rest or on exertion Cardiovascular: No chest pain, tightness or palpitations Abdomen: No pain, nausea, vomiting, diarrhea or constipation Musculoskeletal: No joint pain, calf pain, swelling Neurologic: No weakness, numbness/tingling, or balance problems Psychiatric: No anxiety or depression Skin: No rash or itch Physical Exam Physical Exam: PHYSICAL EXAM: General: awake, alert, no apparent distress Head: Normocephalic, atraumatic ENT: PERRL, EOMI, no pharyngeal exudate, mucous membranes moist Neuro: AAO x 3, speech clear and appropriate, strength intact bilaterally 5/5, sensation intact and equal all extremities and dermatones, no pronator drift Chest: equal rise and fall of the chest, no accessory muscle use, no heaves or thirlls, Clear to auscultation, on room air, Cardiac: Regular rate and rhythm, telelmetry reviewed, skin warm dry, cap refill <3 seconds, peripheral pusles +2 no JVD, no murmur, no JVD, no edema GI: NABS x 4 quadrants, soft, nontender to palpation, no rebound, guarding or tenderness : Spontaneously voiding, no pain, no CVA tenderness, Extremities: Normal inspection, no peripheral edema or erythema, calfs nontender to palpation Psych: Normal mood and affect cits Skin: no rash or erythema Results & Data Results & Data ([facility]) Vital Signs (Past 12 Hours) Vital Signs Temp Pulse Resp BP Pulse Ox 08/13/20 14:30 73 28 H 126/71 94 08/13/20 14:13 78 13 109/73 95 08/13/20 14:00 82 29 H 92/50 L 94 08/13/20 13:00 88 23 125/76 96 08/13/20 12:51 82 26 H 123/79 95 08/13/20 12:30 79 30 H 111/70 91 08/13/20 12:00 40 H 97 08/13/20 11:45 85 40 H 124/61 97 08/13/20 11:30 85 31 H 114/64 95 08/13/20 11:15 94 H 23 115/70 95 08/13/20 11:00 90 36 H 131/78 89 L 08/13/20 10:53 93 08/13/20 10:52 91 H 27 H 116/73 90 08/13/20 09:37 90 08/13/20 08:48 36.9 C 111 H 18 127/77 94 Laboratory Results Abnormal lab results 08/13/20 08/13/20 08/13/20 Range/Units 09:56 09:56 09:56 Plt Count 128 L (130-400) K/uL MPV 11.4 H (7.4-10.4) fL Lymph # (Auto) 0.57 L (1.2-3.4) K/uL APTT 31.4 H (21.0-31.0) Seconds Sodium 131 L (136-145) mmol/L Glucose 109 H (70-99) mg/dl AST 68 H (15-37) U/L Urine Protein (Negative) Urine Ketones (Negative) Urine Blood (Negative) Urine RBC (Auto) (0-4) /hpf U Hyaline Cast (Auto) (0-5) /lpf U Epithel Cells (Auto) (0-5) /lpf SARS-CoV-2 (PCR) (Negative) 08/13/20 08/13/20 Range/Units 10:45 12:47 Plt Count (130-400) K/uL MPV (7.4-10.4) fL Lymph # (Auto) (1.2-3.4) K/uL APTT (21.0-31.0) Seconds Sodium (136-145) mmol/L Glucose (70-99) mg/dl AST (15-37) U/L Urine Protein 2+ H (Negative) Urine Ketones 3+ H (Negative) Urine Blood 1+ H (Negative) Urine RBC (Auto) 5-10 H (0-4) /hpf U Hyaline Cast (Auto) 10-30 H (0-5) /lpf U Epithel Cells (Auto) 20-30 H (0-5) /lpf SARS-CoV-2 (PCR) POSITIVE A* (Negative) Diagnostic Findings XR chest 1V portable CLINICAL HISTORY: SEPSIS COMPARISON STUDY: 11/05/2009 FINDINGS: The heart is the upper limits of normal in size. There is aortic tortuosity/ectasia. There are bilateral interstitial opacities suspicious for a multifocal pneumonia. Clinical and radiographic follow-up is recommended.[ IMPRESSION: Interval development of bilateral interstitial pulmonary opacities, suspicious for a multifocal pneumonia. Clinical and radiographic follow-up is recommended Medications Administered Home Medications Centrum Silver Men 1 tab PO QAM 02/27/19 [History Confirmed 08/13/20] losartan 50 mg tablet 50 mg PO QAM #90 tab 06/08/20 [Rx Confirmed 08/13/20] mupirocin 2 % topical ointment 1 applic TOP BID PRN gm 06/24/20 [History Confirmed 08/13/20] Discontinued Medications Acetaminophen (Acetaminophen 1000 Mg/100 Ml Iv) 1,000 mg IV NOW STA Stop: 08/13/20 09:41 Last Admin: 08/13/20 10:59 Dose: 1,000 mg Documented by: [id number] Dexamethasone (Dexamethasone Sod Inj 10 Mg/Ml Vial) 10 mg IV NOW ONE Stop: 08/13/20 12:43 Last Admin: 08/13/20 14:10 Dose: 10 mg Documented by: [id number] Sodium Chloride (Nss 1000ml) 1,000 mls @ 999 mls/hr IV .Q1H1M STA Stop: 08/13/20 10:37 Last Infusion: 08/13/20 12:03 Dose: 0 mls/hr Documented by: [id number] Admin: 08/13/20 10:59 Dose: 999 mls/hr Documented by: [id number] ECG Additional Comments: Normal sinus rhythm Normal ECG Code Status & VTE Plan Code Status FULL CODE VTE: SCDS, Lovenox VTE Prophylaxis Plan VTE Prophylaxis will be ordered: Yes Supervising Physician Co-Signing Physician Notes [employer] Supervision note: I have personally seen and examined the patient and discussed and verified the hernandez points of the history and physical along with the plan with JANNETTE Velasco with the following exceptions and/or additions: This patient is a 65-year-old male with history of hypertension and BPH, here with acutely worsening shortness of breath and hypoxic at home to 88% on pulse ox after being diagnosed with Covid. Also with some diarrhea and poor p.o. intake, denies abdominal pain. He was requiring 2 L of oxygen in the ER and was feeling very rundown. History and ROS reviewed as above Vitals reviewed Gen: AAOx3, NAD but appears ill HEENT: Anicteric sclerae, EOMI CV: RRR no mgr nl S1S2 Pulm: Positive crackles bilaterally, no wheezes Abd: +BS soft NT ND no masses or hernias Ext: No edema, 2+ DP pulses Skin: No rashes, warm/dry Neuro: Full strength throughout Laboratory values reviewed Chest x-ray reviewed 65-year-old male here with Covid pneumonia and acute respiratory failure with hypoxia, mild hyponatremia likely from dehydration and poor p.o. intake. Plan outlined as above Supplemental O2 to keep pulse ox greater than 90% Pulmonary toilet, Decadron and convalescent plasma ordered. He is not a candidate for remdesivir as he is at 8 days out from his symptoms. Received IV fluids in the ER, encourage p.o. intake PG Care Time/CCT Total # of Minutes Spent Total Time Spent with Patient: Total time spent is greater than 50% in coordination of care (as documented) at patient's floor/unit and/or counseling patient: Coding Level of Care Code 18256 Initial Inpt Care Lvl 3 Diagnoses COVID-19 U07.1 Prediabetes R73.03 Hypertension I10 Hypertension type: essential hypertension Hyponatremia E87.1 DVT prophylaxis Z29.9 (1) Hypertension Hypertension type: essential hypertension Qualified Code(s): I10 - Essential (primary) hypertension
[2020-08-13] MEDS ORDERED: ENOXAPARIN INJ 40 MG/0.4 ML SYR SQ SCH (15:30)
[2020-08-13 15:59] LABS: Fibrinogen 531 mg/dl (184-400)
--- NOTE | 2020-08-13 16:47 | Electrocardiogram Report ---
Test Reason : Blood Pressure : / mmHG Vent. Rate : 095 BPM Atrial Rate : 095 BPM P-R Int : 150 ms QRS Dur : 110 ms QT Int : 376 ms P-R-T Axes : 022 029 024 degrees QTc Int : 472 ms Normal sinus rhythm Abnormal ECG When compared with ECG of 09-JUL-2020 07:23, Nonspecific T wave abnormality, worse in Inferior leads Confirmed by Tod Morales ([id number]) on 08/13/2020 4:47:05 PM Referred By: REFERRED SELF Confirmed By:Tod Morales
[2020-08-13] MEDS ORDERED: ACETAMINOPHEN 325 MG TAB PO PRN (16:58)
[2020-08-13] MEDS ORDERED: ONDANSETRON INJ 2 MG/ML 2 ML VIAL IV PRN (16:58)
[2020-08-13] MEDS: guaiFENesin/DEXTROM SYRUP 100MG/10MG 5ML UDC PO PRN (20:21)
[2020-08-14 06:02] LABS: Hematocrit (blood only) 41.5 % (42-52); Hemoglobin 14.4 g/dL (14.0-18.0); Mean Corpuscular Hgb Conc 34.7 g/dL (32-36); Mean Corpuscular Volume 83.5 fL (80-100); Mean Platelet Volume 11.3 fL (7.4-10.4); Platelet Count 137 K/uL (130-400); RDW Coefficient of Variation 12.7 % (11.5-14.5); RDW Standard Deviation 38.3 fL (36.4-46.3); Red Blood Count 4.97 M/uL (4.7-6.1); White Blood Count 5.21 K/uL (4.8-10.8)
[2020-08-14 06:28] LABS: BUN Creatinine Ratio 19.8 (10-20); Calcium 8.4 mg/dl (8.5-10.1); Creatinine Clr Calc Pharmacy 125.3 ml/min; Est GFR (African American) 113.6; Magnesium 2.2 mg/dl (1.8-2.4); Potassium 3.6 mmol/L (3.5-5.1)
[2020-08-14 06:29] LABS: Immature Granulocytes # (auto) 0.01 K/uL (0.00-0.02); Immature Granulocytes % (auto) 0.2 %; Lymphocytes # (auto) 0.26 K/uL (1.2-3.4); Monocytes % (auto) 11.5 %; Neutrophils # (auto) 4.34 K/uL (1.4-6.5); Neutrophils % (auto) 83.3 %
[2020-08-14] MEDS: LOSARTAN POTASSIUM 50 MG TAB PO SCH (08:38)
[2020-08-14] MEDS: ENOXAPARIN INJ 60 MG/0.6 ML SYR SQ SCH ×2 (08:39→21:40)
[2020-08-14] MEDS: dexAMETHasone 6 MG in SYRINGE 0 ML IV SCH (08:39)
--- NOTE | 2020-08-14 20:19 | Hospitalist Progress Note ---
Date of Service August 14, 2020 Assessment & Plan (1) Pneumonia due to 2019 novel coronavirus: Day #2 of 10 of dexamethasone. Continue 6mg daily. Awaiting convalescent plasma. Patient felt to be too far along in his illness course to have benefit from remdesivir; thus it has been deferred. Self-proning discussed in detail today. Incentive raul/flutter valve. Albuterol q6h. Mucinex 1200mg BID. Cont NC O2 to maintain O2 sats 92% or greater. (2) Acute respiratory failure with hypoxia: 2nd COVID-19 pneumonia. No evidence of complicating CHF. No clinical evidence of PE. Supportive care, steroids, etc. NC o2. (3) Prediabetes: HbA1C 5.9% in 12/2019. Glucose this am was 139. Dietary control should suffice. (4) Hypertension: Continue ARB BPs controlled (5) Hyponatremia: Improved. Repeat BMP am. (6) DVT prophylaxis: lovenox 50mg BID due to higher VTE risk with COVID-19 extensively updated by phone today Admission and Anticipated Discharge Date Admission Date: August 13, 2020 Subjective patient with episodes of coughing. cough is dry. mild chest tightness. recent loss of taste but this is improving. no GI symptoms (recent diarrhea but improved). mild PASCUAL. we had lengthy discussion about proning, pulmonary toilet, etc. Review of Systems Constitutional: + fatigue and + weakness; no fever, no chills and no body aches Ear, Nose, Mouth, Throat: no nasal congestion and no sore throat Respiratory: no hemoptysis and no wheezing Cardiovascular: no chest pain and no edema Gastrointestinal: no abdominal pain Physical Exam Constitutional: well developed and well nourished; no acute distress and no altered mental status ENMT: external ear and nose normal, oropharynx normal Respiratory: no respiratory distress Auscultation: + diminished lung sounds (bases), + rales (bases) and + wheezes (faint, end-exp ) Cardiovascular: Rate/Rhythm: regular rate and regular rhythm Heart Sounds: normal S1 and normal S2; no murmur Vessels: posterior tibial pulses present and dorsalis pedis pulses present; no JVD Extremities: no edema Gastrointestinal (Abdomen): normal bowel sounds, soft, nontender, no hepatosplenomegaly Psychiatric: A+Ox3, euthymic affect Results & Data Results & Data ([facility]) Vital Signs (Past 12 Hours) Vital Signs Temp Pulse Resp BP Pulse Ox 08/14/20 20:15 37 C 108 H 16 128/74 92 08/14/20 15:54 37.1 C 103 H 16 138/73 93 Laboratory Results Laboratory Results - last 24 hr 08/13/20 08/14/20 08/14/20 23:33 05:25 05:25 WBC 5.21 RBC 4.97 Hgb 14.4 Hct 41.5 L MCV 83.5 MCH 29.0 MCHC 34.7 RDW Std Deviation 38.3 RDW Coeff of Judd 12.7 Plt Count 137 MPV 11.3 H Immature Gran % (Auto) 0.2 Neut % (Auto) 83.3 Lymph % (Auto) 5.0 [place] % (Auto) 11.5 Eos % (Auto) 0.0 Baso % (Auto) 0.0 Neut # (Auto) 4.34 Lymph # (Auto) 0.26 L [place] # (Auto) 0.60 H Eos # (Auto) 0.00 Baso # (Auto) 0.00 Immature Gran # (Auto) 0.01 Sodium 135 L Potassium 3.6 Chloride 103 Carbon Dioxide 23 Anion Gap 9.0 BUN 14 Creatinine 0.73 D Est Cr Clr Drug Dosing 125.3 Est GFR ( Amer) 113.6 Est GFR (Non-Af Amer) 98.0 BUN/Creatinine Ratio 19.8 Glucose 139 H POC Glucose 149 H Calcium 8.4 L Magnesium 2.2 08/14/20 17:21 WBC RBC Hgb Hct MCV MCH MCHC RDW Std Deviation RDW Coeff of Judd Plt Count MPV Immature Gran % (Auto) Neut % (Auto) Lymph % (Auto) [place] % (Auto) Eos % (Auto) Baso % (Auto) Neut # (Auto) Lymph # (Auto) [place] # (Auto) Eos # (Auto) Baso # (Auto) Immature Gran # (Auto) Sodium Potassium Chloride Carbon Dioxide Anion Gap BUN Creatinine Est Cr Clr Drug Dosing Est GFR ( Amer) Est GFR (Non-Af Amer) BUN/Creatinine Ratio Glucose POC Glucose 126 H Calcium Magnesium PG Care Time/CCT Total # of Minutes Spent Total Time Spent with Patient: Total time spent is greater than 50% in coordination of care (as documented) at patient's floor/unit and/or counseling patient: Coding Level of Care Code 57535 Subseq Hosp Care Lvl 3 Diagnoses Pneumonia due to 2019 novel coronavirus U07.1; J12.82 Acute respiratory failure with hypoxia J96.01 Prediabetes R73.03 Hypertension I10 Hypertension type: essential hypertension Hyponatremia E87.1 DVT prophylaxis Z29.9 (1) Hypertension Hypertension type: essential hypertension Qualified Code(s): I10 - Essential (primary) hypertension
[2020-08-14] MEDS: guaiFENesin 600 MG TABCR PO SCH (21:40)
[2020-08-15] MEDS: ALBUTEROL HFA 8 GM INHALER INH SCH ×2 (01:25→07:26)
[2020-08-15 06:29] LABS: BUN Creatinine Ratio 14.9 (10-20); Creatinine Clr Calc Pharmacy 103.9 ml/min; Est GFR (African American) 105.2; Est GFR (Non-African American) 90.8; Magnesium 2.1 mg/dl (1.8-2.4); Potassium 3.6 mmol/L (3.5-5.1)
[2020-08-15 07:13] LABS: D Dimer 850 ug/L FEU (0-500)
[2020-08-15] MEDS ORDERED: ALBUTEROL HFA 8 GM INHALER INH PRN ×2 (08:14→09:00)
[2020-08-15] MEDS: guaiFENesin 600 MG TABCR PO SCH ×2 (08:48→20:17)
[2020-08-15] MEDS: dexAMETHasone 6 MG in SYRINGE 0 ML IV SCH (08:48)
[2020-08-15] MEDS: LOSARTAN POTASSIUM 50 MG TAB PO SCH (08:49)
[2020-08-15] MEDS: guaiFENesin/DEXTROM SYRUP 100MG/10MG 5ML UDC PO PRN (08:50)
[2020-08-15] MEDS: ENOXAPARIN INJ 60 MG/0.6 ML SYR SQ SCH ×2 (08:50→20:17)
--- NOTE | 2020-08-15 19:03 | Hospitalist Progress Note ---
Date of Service August 15, 2020 Assessment & Plan (1) Pneumonia due to 2019 novel coronavirus: Stable. On general scale he is improving. Pulmonary status is largely unchanged but hopefully he is plateauing. Day #3 of 10 of dexamethasone. Continue 6mg daily. Awaiting convalescent plasma. Patient felt to be too far along in his illness course to have benefit from remdesivir; thus it has been deferred. Continue self-proning. Incentive raul/flutter valve. Albuterol q6h -- make PRN. Mucinex 1200mg BID. Cont NC O2 to maintain O2 sats 92% or greater. (2) Acute respiratory failure with hypoxia: 2nd COVID-19 pneumonia. No evidence of complicating CHF. No clinical evidence of PE. Supportive care, steroids, etc. NC o2. Stable. (3) Prediabetes: HbA1C 5.9% in 12/2019. Glucose this am was 139. Dietary control should suffice. (4) Hypertension: Continue ARB BPs controlled (5) Hyponatremia: Had improved, now worse again. Check serum Osm, urine Osm, and urine Na. Looks euvolemic on exam. Repeat BMP am. (6) DVT prophylaxis: lovenox 50mg BID due to higher VTE risk with COVID-19 extensively updated by phone again today Admission and Anticipated Discharge Date Admission Date: August 13, 2020 Subjective patient has been diligent doing his proning and flutter valve/incentive raul states that the albuterol inhaler gave him a severe coughing fit robittussin ac is not helpful for cough scant PASCUAL no chest pain no abd pain eating is much better taste/smell have normalized no new complaints Review of Systems Constitutional: + fatigue; no fever, no chills, no body aches and no anorexia Cardiovascular: no chest pain Gastrointestinal: no abdominal pain, no nausea, no vomiting and no diarrhea/loose stools Physical Exam Constitutional: well developed and well nourished; no acute distress, not ill appearing and no altered mental status ENMT: external ear and nose normal, oropharynx normal Respiratory: no respiratory distress Auscultation: + rales (basilar, mild, b/l); no wheezes Cardiovascular: Rate/Rhythm: regular rate and regular rhythm Heart Sounds: normal S1 and normal S2; no murmur Vessels: posterior tibial pulses present and dorsalis pedis pulses present; no JVD Extremities: no edema Gastrointestinal (Abdomen): normal bowel sounds, soft, nontender, no hepatosplenomegaly Skin: no rashes, warm and dry Psychiatric: A+Ox3, euthymic affect Results & Data Results & Data ([facility]) Vital Signs (Past 12 Hours) Vital Signs Temp Pulse Resp BP Pulse Ox 08/15/20 15:38 36.5 C 90 18 130/88 90 08/15/20 08:59 36.5 C 08/15/20 08:39 91 H 20 130/71 90 08/15/20 07:28 91 H 18 90 Laboratory Results Laboratory Results - last 24 hr 08/15/20 08/15/20 08/15/20 01:38 05:27 05:31 D-Dimer 850 H* Sodium 131 L Potassium 3.6 Chloride 98 Carbon Dioxide 26 Anion Gap 7.0 BUN 13 Creatinine 0.88 Est Cr Clr Drug Dosing 103.9 Est GFR ( Amer) 105.2 Est GFR (Non-Af Amer) 90.8 BUN/Creatinine Ratio 14.9 Glucose 120 H POC Glucose 130 H Calcium 9.0 Magnesium 2.1 AST 68 H 08/15/20 08/15/20 09:05 16:13 D-Dimer Sodium Potassium Chloride Carbon Dioxide Anion Gap BUN Creatinine Est Cr Clr Drug Dosing Est GFR ( Amer) Est GFR (Non-Af Amer) BUN/Creatinine Ratio Glucose POC Glucose 147 H 139 H Calcium Magnesium AST PG Care Time/CCT Total # of Minutes Spent Total Time Spent with Patient: Total time spent is greater than 50% in coordination of care (as documented) at patient's floor/unit and/or counseling patient: Coding Level of Care Code 56258 Subseq Hosp Care Lvl 2 Diagnoses Pneumonia due to 2019 novel coronavirus U07.1; J12.82 Acute respiratory failure with hypoxia J96.01 Prediabetes R73.03 Hypertension I10 Hypertension type: essential hypertension Hyponatremia E87.1 DVT prophylaxis Z29.9 (1) Hypertension Hypertension type: essential hypertension Qualified Code(s): I10 - Essential (primary) hypertension
[2020-08-16 06:41] LABS: BUN Creatinine Ratio 18.3 (10-20); Calcium 9.2 mg/dl (8.5-10.1); Creatinine Clr Calc Pharmacy 115.8 ml/min; Est GFR (Non-African American) 94.9; Potassium 3.7 mmol/L (3.5-5.1)
[2020-08-16] MEDS: LOSARTAN POTASSIUM 50 MG TAB PO SCH (08:25)
[2020-08-16] MEDS: dexAMETHasone 6 MG in SYRINGE 0 ML IV SCH (08:26)
[2020-08-16] MEDS: guaiFENesin 600 MG TABCR PO SCH ×2 (08:26→20:18)
[2020-08-16] MEDS: ENOXAPARIN INJ 60 MG/0.6 ML SYR SQ SCH ×2 (08:26→20:18)
--- NOTE | 2020-08-16 19:43 | XRay Report ---
SINGLE VIEW CHEST CLINICAL HISTORY: Hypoxia. Covid. FINDINGS: 2 AP, portable, upright chest radiographs are compared to study dated 08/13/2020. The cardio mediastinal silhouette is unremarkable. Multifocal airspace consolidation is again seen throughout sia th lungs. This has modestly worsened as compared to 08/13/2020. No large pleural effusion or pneumotho rax is seen. The bony thorax is grossly intact. IMPRESSION: Multifocal airspace consolidation has modestly worsened as compared to 08/13/2020. ACT 112: Negative or not required by law. Electronically signed by: Hu De Luna M.D. 08/16/2020 7:42 PM
[2020-08-16] MEDS: MELATONIN 3 MG TAB PO PRN (20:18)
[2020-08-16] MEDS ORDERED: SODIUM CHLORIDE 0.65% NA SOLN 45 ML (OCEAN) PRN (21:54)
--- NOTE | 2020-08-16 21:54 | Hospitalist Progress Note ---
Date of Service August 16, 2020 Assessment & Plan (1) Pneumonia due to 2019 novel coronavirus: During my rounds I increased his O2 to 4 L from 3. I had him do incentive raul, then he proned. Before leaving the room his O2 sats were 93-95% on the 4 L. CXR obtained shortly after my visit - mildly worse b/l infiltrates. Day #4 of 10 of dexamethasone 6mg daily. s/p convalescent plasma 08/15/20. Patient felt to be too far along in his illness course to have benefit from remdesivir; thus it was deferred at admission. Continue self-proning. Incentive raul/flutter valve. Albuterol q6h PRN. Mucinex 1200mg BID. Cont NC O2 to maintain O2 sats 92% or greater. Recheck CBC, AST, ALT, procalcitonin, dimer in am. Add nasacort and saline drops for nasal congestion. Send sputum culture to check for bacterial superinfection. (2) Acute respiratory failure with hypoxia: 2nd COVID-19 pneumonia. No evidence of complicating CHF. No clinical evidence of PE. Supportive care, steroids, etc. NC o2. See above. (3) Prediabetes: HbA1C 5.9% in 12/2019. Dietary control should suffice. Continue T2DM diet. Random BSG today was <150 -- this is satisfactory especially in light of steroid use. (4) Hypertension: Continue ARB BPs controlled (5) Hyponatremia: May have mild element of SIADH from pulmonary infection given his urine studies and serum osm. Recheck BMP in am. He appears euvolemic on exam once again. (6) Elevated AST (SGOT): 2nd to COVID-19 infection. Recheck ast/alt in am. (7) BPH NOS w ur obs/LUTS: No symptoms at this time. (8) Insomnia: start melatonin 3mg hs (9) DVT prophylaxis: lovenox 50mg BID due to higher VTE risk with COVID-19 extensively updated by phone 08/15 and 08/16 told her about Facetime option to see her while he is hospitalized order PT consult to ensure he is staying conditioned Admission and Anticipated Discharge Date Admission Date: August 13, 2020 Subjective Patient reports poor sleep since admission. Got 3-4 hours of sleep max last pm. Very tired today. Despite such he continues to prone multiple times each day. Using incentive and flutter valve. Cough is now productive, and he is having nasal discharge as well. No dyspnea at rest or with exertion. Minimal amount of chest tightness. Eating well. Smell/taste have returned. Ambulating to bathroom. Received plasma infusion last pm w/o incident. Review of Systems Constitutional: + fatigue; no fever, no chills, no body aches and no anorexia Ear, Nose, Mouth, Throat: + nasal congestion; no sore throat Respiratory: + cough and + sputum production; no hemoptysis and no wheezing Cardiovascular: no chest pain, no orthopnea and no edema Gastrointestinal: no abdominal pain, no vomiting and no diarrhea/loose stools Physical Exam Constitutional: well developed and well nourished; no acute distress, not ill appearing and no altered mental status ENMT: external ear and nose normal, oropharynx normal Respiratory: no respiratory distress Auscultation: + rales (basilar, mild, b/l - maybe slightly worse than yesterday); no diminished lung sounds and no wheezes Cardiovascular: Rate/Rhythm: regular rate and regular rhythm Heart Sounds: normal S1 and normal S2; no murmur Vessels: posterior tibial pulses present and dorsalis pedis pulses present; no JVD Extremities: no edema Gastrointestinal (Abdomen): normal bowel sounds, soft, nontender, no hepatosplenomegaly Skin: no rashes, warm and dry Psychiatric: A+Ox3, euthymic affect Results & Data Results & Data ([facility]) Vital Signs (Past 12 Hours) Vital Signs Temp Pulse Pulse Resp BP BP Pulse Ox 08/16/20 08:18 36.9 C 83 16 113/70 90 08/15/20 23:48 36.9 C 80 18 128/76 90 08/15/20 23:45 37 C 80 20 130/78 89 L 08/15/20 22:50 36.6 C 77 18 118/76 90 08/15/20 22:20 36.4 C L 77 18 119/72 90 08/15/20 21:50 36.6 C 80 18 120/75 91 08/15/20 21:20 36.7 C 80 20 118/72 89 L 08/15/20 21:05 36.7 C 86 20 121/73 92 Laboratory Results Laboratory Results - last 24 hr 08/15/20 08/15/2021 20:54 20:54 00:03 Sodium Potassium Chloride Carbon Dioxide Anion Gap BUN Creatinine Est Cr Clr Drug Dosing Est GFR ( Amer) Est GFR (Non-Af Amer) BUN/Creatinine Ratio Glucose POC Glucose 123 H Osmolality Calcium Urine Osmolality 713 Ur Random Sodium 42 08/16/20 08/16/20 08/16/20 05:46 05:46 08:15 Sodium 133 L Potassium 3.7 Chloride 99 Carbon Dioxide 28 Anion Gap 6.0 BUN 15 Creatinine 0.79 Est Cr Clr Drug Dosing 115.8 Est GFR ( Amer) 110.0 Est GFR (Non-Af Amer) 94.9 BUN/Creatinine Ratio 18.3 Glucose 120 H POC Glucose 119 H Osmolality 280 Calcium 9.2 Urine Osmolality Ur Random Sodium 08/16/20 16:45 Sodium Potassium Chloride Carbon Dioxide Anion Gap BUN Creatinine Est Cr Clr Drug Dosing Est GFR ( Amer) Est GFR (Non-Af Amer) BUN/Creatinine Ratio Glucose POC Glucose 148 H Osmolality Calcium Urine Osmolality Ur Random Sodium Diagnostic Findings cxr - mild increase in b/l infiltrates PG Care Time/CCT Total # of Minutes Spent Total Time Spent with Patient: Total time spent is greater than 50% in coordination of care (as documented) at patient's floor/unit and/or counseling patient: Coding Level of Care Code 64685 Subseq Hosp Care Lvl 3 Diagnoses Pneumonia due to 2019 novel coronavirus U07.1; J12.82 Acute respiratory failure with hypoxia J96.01 Prediabetes R73.03 Hypertension I10 Hypertension type: essential hypertension Hyponatremia E87.1 Elevated AST (SGOT) R74.01 BPH NOS w ur obs/LUTS N40.1 Insomnia G47.09 Insomnia type: other insomnia DVT prophylaxis Z29.9 (1) Hypertension Hypertension type: essential hypertension Qualified Code(s): I10 - Essential (primary) hypertension (2) Insomnia Insomnia type: other insomnia Qualified Code(s): G47.09 - Other insomnia
[2020-08-17 06:43] LABS: Hematocrit (blood only) 39.8 % (42-52); Hemoglobin 13.4 g/dL (14.0-18.0); Mean Corpuscular Hemoglobin 28.8 pg (25-34); Mean Corpuscular Hgb Conc 33.7 g/dL (32-36); Mean Corpuscular Volume 85.4 fL (80-100); Mean Platelet Volume 10.7 fL (7.4-10.4); Platelet Count 211 K/uL (130-400); RDW Coefficient of Variation 12.9 % (11.5-14.5); RDW Standard Deviation 40.5 fL (36.4-46.3); Red Blood Count 4.66 M/uL (4.7-6.1); White Blood Count 14.21 K/uL (4.8-10.8)
[2020-08-17 07:03] LABS: Alanine Aminotransferase 66 U/L (12-78); Aspartate Aminotransferase 54 U/L (15-37)
[2020-08-17 07:06] LABS: BUN Creatinine Ratio 20.6 (10-20); Calcium 8.5 mg/dl (8.5-10.1); Creatinine Clr Calc Pharmacy 115.8 ml/min; Est GFR (Non-African American) 94.9; Potassium 3.8 mmol/L (3.5-5.1)
[2020-08-17 07:09] LABS: Basophils # (auto) 0.04 K/uL (0-0.2); Basophils % (auto) 0.3 %; Immature Granulocytes # (auto) 0.14 K/uL (0.00-0.02); Lymphocytes # (auto) 1.28 K/uL (1.2-3.4); Monocytes # (auto) 0.91 K/uL (0.11-0.59); Monocytes % (auto) 6.4 %; Neutrophils # (auto) 11.84 K/uL (1.4-6.5); Neutrophils % (auto) 83.3 %
[2020-08-17 07:33] LABS: D Dimer 670 ug/L FEU (0-500)
[2020-08-17] MEDS: dexAMETHasone 6 MG in SYRINGE 0 ML IV SCH (08:22)
[2020-08-17] MEDS: TRIAMCINOLONE ACET NASAL SPRAY 10.8ML BTL NAE SCH (08:23)
[2020-08-17] MEDS: guaiFENesin 600 MG TABCR PO SCH ×2 (08:25→20:45)
[2020-08-17] MEDS: LOSARTAN POTASSIUM 50 MG TAB PO SCH (08:25)
[2020-08-17] MEDS: ENOXAPARIN INJ 60 MG/0.6 ML SYR SQ SCH ×2 (08:26→20:45)
--- NOTE | 2020-08-17 11:50 | Hospitalist Progress Note ---
Date of Service August 17, 2020 Assessment & Plan (1) Pneumonia due to 2019 novel coronavirus: he remains stable, breathing comfortably, no distress at all, no fever/chills, eating and drinking well he continues to lay prone three times a day, using incentive spirometer Day #5 of 10 of dexamethasone 6mg daily. s/p convalescent plasma 08/15/20. Incentive raul/flutter valve. Albuterol q6h PRN. Mucinex 1200mg BID. procalcitonin negative, < 0.05 sputum culture with multiple bacteria on gram stain, await final culture D dimer is 670, not very high for COVID will give Lasix 20mg IV to keep lungs on dry side, this may help more than anything else with oxygenation (2) Acute respiratory failure with hypoxia: 2nd COVID-19 pneumonia. No clinical evidence of PE. Supportive care, steroids he is ranging from 4L to 8L, no distress or increased work of breathing give Lasix 20mg IV challenge, see how he responds, keep lungs dry hope to get him home by the end of the week (3) Prediabetes: HbA1C 5.9% in 12/2019. Dietary control should suffice. Continue T2DM diet. glucose 130's this morning (4) Hypertension: Continue ARB BPs controlled (5) Hyponatremia: resolved, Na 137 (6) Elevated AST (SGOT): 2nd to COVID-19 infection. AST is 54, ALT normal (7) BPH NOS w ur obs/LUTS: No symptoms at this time. (8) Insomnia: start melatonin 3mg hs (9) DVT prophylaxis: lovenox 50mg BID due to higher VTE risk with COVID-19 order PT consult to ensure he is staying conditioned Admission and Anticipated Discharge Date Admission Date: August 13, 2020 Subjective patient is frustrated being here in the hospital, just wants to go home, can't believe he has been here 5 days now he is on 8L oxymask at rest, no distress at all, he is using incentive spirometer he lays prone three times a day for an hour each time, has a cough that is mostly dry he is eating and drinking really well, no fever/chills reviewed chart, reviewed labs, recent imaging, specifically CXR yesterday with worsening infiltrates discussed giving him Lasix 20mg IV, will try to keep lungs dry, see if oxygen requirements improve he understands he will likely urinate a lot more Review of Systems 2 Review of Systems: All systems reviewed & are unremarkable except as noted in Subjective Constitutional: no fever, no chills, no sweats, no fatigue and no weakness Ear, Nose, Mouth, Throat: + nasal congestion and + epistaxis Respiratory: + cough; no chest congestion, no dyspnea, no dyspnea on exertion and no sputum production Cardiovascular: no chest pain and no edema Gastrointestinal: no abdominal pain, no nausea, no vomiting, no constipation and no diarrhea/loose stools Physical Exam Constitutional: WD/WN, vitals as above Neck: trachea midline, no thyromegaly Respiratory: normal respiratory effort and + cough; no respiratory distress, no labored breathing and not tachypneic Auscultation: + crackles (bases); no rales, no rhonchi and no wheezes Cardiovascular: RRR, no murmur, no edema Gastrointestinal (Abdomen): normal bowel sounds, soft, nontender, no hepatosplenomegaly Musculoskeletal: no cyanosis or clubbing, extremities motor strength 5/5 Skin: no rashes, warm and dry Neurologic: patellar DTR's 2+ bilat, sensation intact and PERRL, EOMI, accommodation nl, no face palsy, no dysarthria Psychiatric: A+Ox3, euthymic affect Lymphatic: no cervical or axillary lymphadenopathy Results & Data Results & Data ([facility]) Vital Signs (Past 12 Hours) Vital Signs Temp Pulse Resp BP Pulse Ox 08/17/20 08:47 92 08/17/20 08:35 36.8 C 85 16 123/69 90 08/17/20 00:05 36.9 C 69 22 117/71 93 Laboratory Results Laboratory Results - last 24 hr 08/16/20 08/17/20 08/17/20 16:45 00:03 06:26 WBC 14.21 H RBC 4.66 L Hgb 13.4 L Hct 39.8 L MCV 85.4 MCH 28.8 MCHC 33.7 RDW Std Deviation 40.5 RDW Coeff of Judd 12.9 Plt Count 211 MPV 10.7 H Immature Gran % (Auto) 1.0 Neut % (Auto) 83.3 Lymph % (Auto) 9.0 [place] % (Auto) 6.4 Eos % (Auto) 0.0 Baso % (Auto) 0.3 Neut # (Auto) 11.84 H Lymph # (Auto) 1.28 [place] # (Auto) 0.91 H Eos # (Auto) 0.00 Baso # (Auto) 0.04 Immature Gran # (Auto) 0.14 H D-Dimer Sodium Potassium Chloride Carbon Dioxide Anion Gap BUN Creatinine Est Cr Clr Drug Dosing Est GFR ( Amer) Est GFR (Non-Af Amer) BUN/Creatinine Ratio Glucose POC Glucose 148 H 158 H Calcium AST ALT Procalcitonin 08/17/20 08/17/20 08/17/20 06:26 06:26 06:26 WBC RBC Hgb Hct MCV MCH MCHC RDW Std Deviation RDW Coeff of Judd Plt Count MPV Immature Gran % (Auto) Neut % (Auto) Lymph % (Auto) [place] % (Auto) Eos % (Auto) Baso % (Auto) Neut # (Auto) Lymph # (Auto) [place] # (Auto) Eos # (Auto) Baso # (Auto) Immature Gran # (Auto) D-Dimer 670 H* Sodium Potassium Chloride Carbon Dioxide Anion Gap BUN Creatinine Est Cr Clr Drug Dosing Est GFR ( Amer) Est GFR (Non-Af Amer) BUN/Creatinine Ratio Glucose POC Glucose Calcium AST 54 H ALT 66 Procalcitonin < 0.05 08/17/20 08/17/20 06:26 08:20 WBC RBC Hgb Hct MCV MCH MCHC RDW Std Deviation RDW Coeff of Judd Plt Count MPV Immature Gran % (Auto) Neut % (Auto) Lymph % (Auto) [place] % (Auto) Eos % (Auto) Baso % (Auto) Neut # (Auto) Lymph # (Auto) [place] # (Auto) Eos # (Auto) Baso # (Auto) Immature Gran # (Auto) D-Dimer Sodium 137 Potassium 3.8 Chloride 104 Carbon Dioxide 27 Anion Gap 6.0 BUN 16 Creatinine 0.79 Est Cr Clr Drug Dosing 115.8 Est GFR ( Amer) 110.0 Est GFR (Non-Af Amer) 94.9 BUN/Creatinine Ratio 20.6 H Glucose 131 H POC Glucose 132 H Calcium 8.5 AST ALT Procalcitonin Medications Administered Current Inpatient Medications Acetaminophen (Acetaminophen 325 Mg Tab) 650 mg PO Q4H PRN PRN Reason: pain/fever Stop: 09/12/20 16:57 Albuterol (Albuterol Hfa 8 Gm Inhaler) 2 puffs INH Q4R PRN PRN Reason: Shortness Of Breath Or Wheezing Stop: 09/14/20 08:13 Enoxaparin Sodium (Enoxaparin Inj 60 Mg/0.6 Ml Syr) 50 mg SQ BID HARLEEN Stop: 09/13/20 08:59 Last Admin: 08/17/20 08:26 Dose: 50 mg Documented by: Guaifenesin (Guaifenesin 600 Mg Tabcr) 1,200 mg PO Q12 HARLEEN Stop: 09/13/20 20:59 Last Admin: 08/17/20 08:25 Dose: 1,200 mg Documented by: Guaifenesin/Dextromethorphan (Guaifenesin/Dextrom Syrup 100mg/10mg 5ml Udc) 5 ml PO Q6H PRN PRN Reason: Cough Stop: 09/12/20 17:13 Last Admin: 08/15/20 08:50 Dose: 5 ml Documented by: Dexamethasone 6 mg/ Syringe 1.5 mls @ 1 mls/min IV DAILY HARLEEN Stop: 08/24/20 08:59 Last Admin: 08/17/20 08:22 Dose: 1 mls/min Documented by: Furosemide 20 mg/ Syringe 2 mls @ 4 mls/min IV ONE ONE Stop: 08/17/20 12:01 Losartan Potassium (Losartan Potassium 50 Mg Tab) 50 mg PO QAM [facility] Stop: 09/13/20 08:59 Last Admin: 08/17/20 08:25 Dose: 50 mg Documented by: Melatonin (Melatonin 3 Mg Tab) 3 mg PO HS PRN PRN Reason: Sleep Stop: 09/15/20 18:25 Last Admin: 08/16/20 20:18 Dose: 3 mg Documented by: Ondansetron HCl (Ondansetron Inj 2 Mg/Ml 2 Ml Vial) 4 mg IV Q6H PRN PRN Reason: Nausea Stop: 09/12/20 16:57 Sodium Chloride (Sodium Chloride 0.65% Na Soln 45 Ml ([place])) 2 sprays NA Q1H PRN PRN Reason: nasal congestion Stop: 09/15/20 21:53 Triamcinolone Acetonide (Triamcinolone Acet Nasal [place] 10.8ml Btl) 2 sprays [place] DAILY HARLEEN Stop: 09/16/20 08:59 Last Admin: 08/17/20 08:23 Dose: 2 sprays Documented by: PG Care Time/CCT Total # of Minutes Spent Total Time Spent with Patient: Total time spent is greater than 50% in coordination of care (as documented) at patient's floor/unit and/or counseling patient: Coding Level of Care Code 25637 Subseq Hosp Care Lvl 3 Diagnoses Pneumonia due to 2019 novel coronavirus U07.1; J12.82 Acute respiratory failure with hypoxia J96.01 Prediabetes R73.03 Hypertension I10 Hypertension type: essential hypertension Hyponatremia E87.1 Elevated AST (SGOT) R74.01 BPH NOS w ur obs/LUTS N40.1 Insomnia G47.09 Insomnia type: other insomnia DVT prophylaxis Z29.9 (1) Hypertension Hypertension type: essential hypertension Qualified Code(s): I10 - Essential (primary) hypertension (2) Insomnia Insomnia type: other insomnia Qualified Code(s): G47.09 - Other insomnia
[2020-08-17] MEDS ORDERED: POTASSIUM CHLORIDE CRTAB 20 MEQ TABCR PO STA (11:57)
[2020-08-17] MEDS ORDERED: FUROSEMIDE 20 MG in SYRINGE 0 ML IV ONE (12:00)
[2020-08-18 05:53] LABS: Hematocrit (blood only) 39.8 % (42-52); Hemoglobin 13.6 g/dL (14.0-18.0); Mean Corpuscular Hemoglobin 29.1 pg (25-34); Mean Corpuscular Hgb Conc 34.2 g/dL (32-36); Mean Corpuscular Volume 85.2 fL (80-100); Mean Platelet Volume 10.7 fL (7.4-10.4); Platelet Count 276 K/uL (130-400); RDW Standard Deviation 40.5 fL (36.4-46.3); Red Blood Count 4.67 M/uL (4.7-6.1); White Blood Count 13.22 K/uL (4.8-10.8)
[2020-08-18 06:14] LABS: Albumin Level 2.6 gm/dl (3.4-5.0); BUN Creatinine Ratio 24.1 (10-20); Calcium 8.8 mg/dl (8.5-10.1); Creatinine Clr Calc Pharmacy 114.3 ml/min; Est GFR (African American) 109.4; Est GFR (Non-African American) 94.4; Potassium 3.9 mmol/L (3.5-5.1)
[2020-08-18 06:16] LABS: Albumin Globulin Ratio 0.6 (0.9-2); Bilirubin,Total 0.7 mg/dl (0.2-1); Globulin 4.1 gm/dl (2.5-4.0); Total Protein 6.7 gm/dl (6.4-8.2)
--- NOTE | 2020-08-18 08:25 | XRay Report ---
XR chest 1V portable HISTORY: hypoxemia COMPARISON: Chest 08/16/2020. FINDINGS: Patchy bilateral mid to lower lung zone airspace opacities persist. This is consistent with a multifocal pneumonia. No pneumothorax. No pleural effusions. There are low lung volumes. The cardi ac silhouette is top normal in size. There is a mildly tortuous thoracic aorta. IMPRESSION: No change in the moderate multifocal airspace opacities consistent with a pneumonia. ACT 112: Negative or not required by law. Electronically signed by: Travis Joyner M.D. 08/18/2020 8:24 AM
[2020-08-18] MEDS: dexAMETHasone 6 MG in SYRINGE 0 ML IV SCH (08:31)
[2020-08-18] MEDS: ENOXAPARIN INJ 60 MG/0.6 ML SYR SQ SCH ×2 (08:31→21:32)
[2020-08-18] MEDS: guaiFENesin 600 MG TABCR PO SCH ×2 (08:34→21:32)
[2020-08-18] MEDS: LOSARTAN POTASSIUM 50 MG TAB PO SCH (08:34)
[2020-08-18] MEDS: TRIAMCINOLONE ACET NASAL SPRAY 10.8ML BTL NAE SCH (08:35)
--- NOTE | 2020-08-18 09:23 | Hospitalist Progress Note ---
Date of Service August 18, 2020 Assessment & Plan (1) Pneumonia due to 2019 novel coronavirus: he remains stable, breathing comfortably, no distress at all, no fever/chills, eating and drinking well he continues to lay prone three times a day, using incentive spirometer will add flutter valve to use at least QID to help break up sputum Day #6 of 10 of dexamethasone 6mg daily. s/p convalescent plasma 08/15/20. Incentive raul Albuterol q6h PRN. Mucinex 1200mg BID. procalcitonin negative, < 0.05 sputum culture with multiple bacteria on gram stain, await final culture (still pending) D dimer is 670, not very high for COVID no response to Lasix challenge on 08/17 more sputum today, dark yellow, will start on Levofloxacin 750mg IV daily x 5 days (2) Acute respiratory failure with hypoxia: 2nd COVID-19 pneumonia. No clinical evidence of PE. Supportive care, steroids he is ranging from 4L to 8L, no distress or increased work of breathing saturations are higher when laying prone or in lateral position add flutter valve to mobilize sputum, add Levofloxacin hope to get him home by the end of the week (3) Prediabetes: HbA1C 5.9% in 12/2019. Dietary control should suffice. Continue T2DM diet. glucose 120's this morning, no hypoglycemia (4) Hypertension: Continue ARB BPs controlled (5) Hyponatremia: resolved, Na 137 again today (6) Elevated AST (SGOT): 2nd to COVID-19 infection. AST and ALT normal (7) BPH NOS w ur obs/LUTS: No symptoms at this time. (8) Insomnia: start melatonin 3mg hs (9) DVT prophylaxis: lovenox 50mg BID due to higher VTE risk with COVID-19 order PT consult to ensure he is staying conditioned Admission and Anticipated Discharge Date Admission Date: August 13, 2020 Subjective patient remains stable on 8L, no distress at all, saturations go up to mid 90's when laying prone or on his side he is coughing up more thick sputum this morning, will add flutter valve CXR this morning shows no change in bibasilar infiltrates, viewed images myself will add Levofloxacin since his cough is more productive he did not notice an increase in urination yesterday after the Lasix and no improvement in oxygenation reviewed labs, WBC 13k, Hb 13, Cr 0.8, K 3.9 Review of Systems Review of Systems: All systems reviewed & are unremarkable except as noted in Subjective Respiratory: + cough, + chest congestion, + dyspnea on exertion and + sputum production; no dyspnea, no hemoptysis, no pain with cough and no wheezing Cardiovascular: no chest pain and no edema Physical Exam Constitutional: WD/WN, vitals as above Neck: trachea midline, no thyromegaly Respiratory: normal respiratory effort and + cough; no respiratory distress, no labored breathing and not tachypneic Auscultation: + crackles (bases); no rales, no rhonchi and no wheezes Cardiovascular: RRR, no murmur, no edema Gastrointestinal (Abdomen): normal bowel sounds, soft, nontender, no hepatosplenomegaly Musculoskeletal: no cyanosis or clubbing, extremities motor strength 5/5 Skin: no rashes, warm and dry Neurologic: patellar DTR's 2+ bilat, sensation intact and PERRL, EOMI, accommodation nl, no face palsy, no dysarthria Psychiatric: A+Ox3, euthymic affect Lymphatic: no cervical or axillary lymphadenopathy Results & Data Results & Data ([facility]) Vital Signs (Past 12 Hours) Vital Signs Temp Pulse Resp BP Pulse Ox 08/18/20 07:21 36.6 C 73 16 114/69 89 L 08/17/20 23:46 36.6 C 73 18 113/71 91 Laboratory Results Laboratory Results - last 24 hr 08/17/20 08/17/20 08/18/20 16:49 23:45 05:40 WBC 13.22 H RBC 4.67 L Hgb 13.6 L Hct 39.8 L MCV 85.2 MCH 29.1 MCHC 34.2 RDW Std Deviation 40.5 RDW Coeff of Judd 13.0 Plt Count 276 MPV 10.7 H Sodium Potassium Chloride Carbon Dioxide Anion Gap BUN Creatinine Est Cr Clr Drug Dosing Est GFR ( Amer) Est GFR (Non-Af Amer) BUN/Creatinine Ratio Glucose POC Glucose 143 H 135 H Calcium Total Bilirubin AST ALT Alkaline Phosphatase Total Protein Albumin Globulin Albumin/Globulin Ratio 08/18/20 08/18/20 05:40 08:14 WBC RBC Hgb Hct MCV MCH MCHC RDW Std Deviation RDW Coeff of Judd Plt Count MPV Sodium 137 Potassium 3.9 Chloride 104 Carbon Dioxide 30 Anion Gap 3.0 BUN 19 H Creatinine 0.80 Est Cr Clr Drug Dosing 114.3 Est GFR ( Amer) 109.4 Est GFR (Non-Af Amer) 94.4 BUN/Creatinine Ratio 24.1 H Glucose 128 H POC Glucose 107 H Calcium 8.8 Total Bilirubin 0.7 AST 37 ALT 65 Alkaline Phosphatase 61 Total Protein 6.7 Albumin 2.6 L Globulin 4.1 H Albumin/Globulin Ratio 0.6 L Diagnostic Findings XR chest 1V portable HISTORY: hypoxemia COMPARISON: Chest 08/16/2020. FINDINGS: Patchy bilateral mid to lower lung zone airspace opacities persist. This is consistent with a multifocal pneumonia. No pneumothorax. No pleural effusions. There are low lung volumes. The cardiac silhouette is top normal in size. There is a mildly tortuous thoracic aorta. IMPRESSION: No change in the moderate multifocal airspace opacities consistent with a pneumonia. Medications Administered Current Inpatient Medications Acetaminophen (Acetaminophen 325 Mg Tab) 650 mg PO Q4H PRN PRN Reason: pain/fever Stop: 09/12/20 16:57 Albuterol (Albuterol Hfa 8 Gm Inhaler) 2 puffs INH Q4R PRN PRN Reason: Shortness Of Breath Or Wheezing Stop: 09/14/20 08:13 Enoxaparin Sodium (Enoxaparin Inj 60 Mg/0.6 Ml Syr) 50 mg SQ BID HARLEEN Stop: 09/13/20 08:59 Last Admin: 08/18/20 08:31 Dose: 50 mg Documented by: Guaifenesin (Guaifenesin 600 Mg Tabcr) 1,200 mg PO Q12 HARLEEN Stop: 09/13/20 20:59 Last Admin: 08/18/20 08:34 Dose: 1,200 mg Documented by: Guaifenesin/Dextromethorphan (Guaifenesin/Dextrom Syrup 100mg/10mg 5ml Udc) 5 ml PO Q6H PRN PRN Reason: Cough Stop: 09/12/20 17:13 Last Admin: 08/15/20 08:50 Dose: 5 ml Documented by: Dexamethasone 6 mg/ Syringe 1.5 mls @ 1 mls/min IV DAILY HARLEEN Stop: 08/24/20 08:59 Last Admin: 08/18/20 08:31 Dose: 1 mls/min Documented by: Levofloxacin/Dextrose (Levaquin/D5w) 750 mg in 150 mls @ 100 mls/hr IV Q24H HARLEEN; Protocol Stop: 08/25/20 08:29 Losartan Potassium (Losartan Potassium 50 Mg Tab) 50 mg PO QAM HARLEEN Stop: 09/13/20 08:59 Last Admin: 08/18/20 08:34 Dose: 50 mg Documented by: Melatonin (Melatonin 3 Mg Tab) 3 mg PO HS PRN PRN Reason: Sleep Stop: 09/15/20 18:25 Last Admin: 08/16/20 20:18 Dose: 3 mg Documented by: Ondansetron HCl (Ondansetron Inj 2 Mg/Ml 2 Ml Vial) 4 mg IV Q6H PRN PRN Reason: Nausea Stop: 09/12/20 16:57 Sodium Chloride (Sodium Chloride 0.65% Na Soln 45 Ml ([place])) 2 sprays NA Q1H PRN PRN Reason: nasal congestion Stop: 09/15/20 21:53 Triamcinolone Acetonide (Triamcinolone Acet Nasal [place] 10.8ml Btl) 2 sprays [place] DAILY HARLEEN Stop: 09/16/20 08:59 Last Admin: 08/18/20 08:35 Dose: 2 sprays Documented by: PG Care Time/CCT Total # of Minutes Spent Total Time Spent with Patient: Total time spent is greater than 50% in coordination of care (as documented) at patient's floor/unit and/or counseling patient: Coding Level of Care Code 90749 Subseq Hosp Care Lvl 3 Diagnoses Pneumonia due to 2019 novel coronavirus U07.1; J12.82 Acute respiratory failure with hypoxia J96.01 Prediabetes R73.03 Hypertension I10 Hypertension type: essential hypertension Hyponatremia E87.1 Elevated AST (SGOT) R74.01 BPH NOS w ur obs/LUTS N40.1 Insomnia G47.09 Insomnia type: other insomnia DVT prophylaxis Z29.9 (1) Insomnia Insomnia type: other insomnia Qualified Code(s): G47.09 - Other insomnia (2) Hypertension Hypertension type: essential hypertension Qualified Code(s): I10 - Essential (primary) hypertension
[2020-08-18] MEDS: levoFLOXacin/D5W 750 MG/150 ML BAG IV SCH ×2 (09:54→11:35)
[2020-08-19] MEDS: levoFLOXacin/D5W 750 MG/150 ML BAG IV SCH (07:50)
[2020-08-19] MEDS: dexAMETHasone 6 MG in SYRINGE 0 ML IV SCH (07:50)
[2020-08-19] MEDS: LOSARTAN POTASSIUM 50 MG TAB PO SCH (07:58)
[2020-08-19] MEDS: ENOXAPARIN INJ 60 MG/0.6 ML SYR SQ SCH ×2 (08:00→20:44)
[2020-08-19] MEDS: TRIAMCINOLONE ACET NASAL SPRAY 10.8ML BTL NAE SCH (08:00)
[2020-08-19] MEDS: guaiFENesin 600 MG TABCR PO SCH ×2 (08:02→21:12)
--- NOTE | 2020-08-19 12:43 | Hospitalist Progress Note ---
Date of Service August 19, 2020 Assessment & Plan (1) Pneumonia due to 2019 novel coronavirus: he remains stable, breathing comfortably, no distress at all, no fever/chills, eating and drinking well he continues to lay prone three times a day, using incentive spirometer will add flutter valve to use at least QID to help break up sputum Day #7 of 10 of dexamethasone 6mg daily. s/p convalescent plasma 08/15/20. Incentive raul Albuterol q6h PRN. Mucinex 1200mg BID. procalcitonin negative, < 0.05 sputum culture with multiple bacteria on gram stain, final culture with normal oral karen D dimer is 670, not very high for COVID no response to Lasix challenge on 08/17 more sputum on 08/18, dark yellow, will start on Levofloxacin 750mg IV daily x 5 days, can convert to PO on discharge hope for discharge in the next 24-48 hours (2) Acute respiratory failure with hypoxia: 2nd COVID-19 pneumonia. No clinical evidence of PE. Supportive care, steroids he is stable on 6L, no distress or increased work of breathing saturations are higher when laying prone or in lateral position add flutter valve to mobilize sputum, add Levofloxacin hope to get him home by the end of the week (3) Prediabetes: HbA1C 5.9% in 12/2019. Dietary control should suffice. Continue T2DM diet. glucose well controlled, no hypoglycemia (4) Hypertension: Continue ARB BPs controlled (5) Hyponatremia: resolved, Na 137 again on 08/18 (6) Elevated AST (SGOT): 2nd to COVID-19 infection. AST and ALT normal (7) BPH NOS w ur obs/LUTS: No symptoms at this time. (8) Insomnia: start melatonin 3mg hs (9) DVT prophylaxis: lovenox 50mg BID due to higher VTE risk with COVID-19 order PT consult to ensure he is staying conditioned Admission and Anticipated Discharge Date Admission Date: August 13, 2020 Subjective patient feeling better, down to 6L NC eating and drinking well, sleeping well + cough, has some sputum in the morning when he wakes but then dry cough the rest of the day making urine, moving his bowels no labs today discussed that if we can get him down to 2-3 L then he can go home on oxygen Review of Systems Review of Systems: All systems reviewed & are unremarkable except as noted in Subjective Physical Exam Constitutional: WD/WN, vitals as above Neck: trachea midline, no thyromegaly Respiratory: normal respiratory effort and + cough; no respiratory distress, no labored breathing and not tachypneic Auscultation: + crackles (bases); no rales, no rhonchi and no wheezes Cardiovascular: RRR, no murmur, no edema Gastrointestinal (Abdomen): normal bowel sounds, soft, nontender, no hepatosplenomegaly Musculoskeletal: no cyanosis or clubbing, extremities motor strength 5/5 Skin: no rashes, warm and dry Neurologic: patellar DTR's 2+ bilat, sensation intact and PERRL, EOMI, accommodation nl, no face palsy, no dysarthria Psychiatric: A+Ox3, euthymic affect Lymphatic: no cervical or axillary lymphadenopathy Results & Data Results & Data ([facility]) Vital Signs (Past 12 Hours) Vital Signs Temp Pulse Resp BP Pulse Ox 08/19/20 07:48 36.4 C L 76 18 102/66 86 L 08/19/20 04:55 90 08/19/20 04:07 96 08/19/20 02:43 92 08/19/20 01:53 97 Medications Administered Current Inpatient Medications Acetaminophen (Acetaminophen 325 Mg Tab) 650 mg PO Q4H PRN PRN Reason: pain/fever Stop: 09/12/20 16:57 Albuterol (Albuterol Hfa 8 Gm Inhaler) 2 puffs INH Q4R PRN PRN Reason: Shortness Of Breath Or Wheezing Stop: 09/14/20 08:13 Enoxaparin Sodium (Enoxaparin Inj 60 Mg/0.6 Ml Syr) 50 mg SQ BID HARLEEN Stop: 09/13/20 08:59 Last Admin: 08/19/20 08:00 Dose: 50 mg Documented by: Guaifenesin (Guaifenesin 600 Mg Tabcr) 1,200 mg PO Q12 HARLEEN Stop: 09/13/20 20:59 Last Admin: 08/19/20 08:02 Dose: 1,200 mg Documented by: Guaifenesin/Dextromethorphan (Guaifenesin/Dextrom Syrup 100mg/10mg 5ml Udc) 5 ml PO Q6H PRN PRN Reason: Cough Stop: 09/12/20 17:13 Last Admin: 08/15/20 08:50 Dose: 5 ml Documented by: Dexamethasone 6 mg/ Syringe 1.5 mls @ 1 mls/min IV DAILY HARLEEN Stop: 08/24/20 08:59 Last Admin: 08/19/20 07:50 Dose: 1 mls/min Documented by: Levofloxacin/Dextrose (Levaquin/D5w) 750 mg in 150 mls @ 100 mls/hr IV Q24H HARLEEN; Protocol Stop: 08/25/20 08:29 Last Admin: 08/19/20 07:50 Dose: 100 mls/hr Documented by: Losartan Potassium (Losartan Potassium 50 Mg Tab) 50 mg PO QAM HARLEEN Stop: 09/13/20 08:59 Last Admin: 08/19/20 07:58 Dose: 50 mg Documented by: Melatonin (Melatonin 3 Mg Tab) 3 mg PO HS PRN PRN Reason: Sleep Stop: 09/15/20 18:25 Last Admin: 08/16/20 20:18 Dose: 3 mg Documented by: Ondansetron HCl (Ondansetron Inj 2 Mg/Ml 2 Ml Vial) 4 mg IV Q6H PRN PRN Reason: Nausea Stop: 09/12/20 16:57 Sodium Chloride (Sodium Chloride 0.65% Na Soln 45 Ml ([place])) 2 sprays NA Q1H PRN PRN Reason: nasal congestion Stop: 09/15/20 21:53 Triamcinolone Acetonide (Triamcinolone Acet Nasal [place] 10.8ml Btl) 2 sprays [place] DAILY [facility] Stop: 09/16/20 08:59 Last Admin: 08/19/20 08:00 Dose: Not Given Documented by: PG Care Time/CCT Total # of Minutes Spent Total Time Spent with Patient: Total time spent is greater than 50% in coordination of care (as documented) at patient's floor/unit and/or counseling patient: Coding Level of Care Code 71698 Subseq Hosp Care Lvl 2 Diagnoses Pneumonia due to 2019 novel coronavirus U07.1; J12.82 Acute respiratory failure with hypoxia J96.01 Prediabetes R73.03 Hypertension I10 Hypertension type: essential hypertension Hyponatremia E87.1 Elevated AST (SGOT) R74.01 BPH NOS w ur obs/LUTS N40.1 Insomnia G47.09 Insomnia type: other insomnia DVT prophylaxis Z29.9 (1) Hypertension Hypertension type: essential hypertension Qualified Code(s): I10 - Essential (primary) hypertension (2) Insomnia Insomnia type: other insomnia Qualified Code(s): G47.09 - Other insomnia
[2020-08-19] MEDS: MELATONIN 3 MG TAB PO PRN (20:44)
[2020-08-20] MEDS: levoFLOXacin/D5W 750 MG/150 ML BAG IV SCH (08:50)
[2020-08-20] MEDS: guaiFENesin 600 MG TABCR PO SCH ×2 (08:51→20:53)
[2020-08-20] MEDS: dexAMETHasone 6 MG in SYRINGE 0 ML IV SCH (08:51)
[2020-08-20] MEDS: TRIAMCINOLONE ACET NASAL SPRAY 10.8ML BTL NAE SCH (08:52)
[2020-08-20] MEDS: LOSARTAN POTASSIUM 50 MG TAB PO SCH (10:43)
[2020-08-20] MEDS: ENOXAPARIN INJ 60 MG/0.6 ML SYR SQ SCH ×2 (10:43→20:54)
--- NOTE | 2020-08-20 11:05 | Hospitalist Progress Note ---
Date of Service August 20, 2020 Assessment & Plan (1) Pneumonia due to 2019 novel coronavirus: he remains stable, breathing comfortably, no distress at all, no fever/chills, eating and drinking well he continues to lay prone three times a day, using incentive spirometer will add flutter valve to use at least QID to help break up sputum Day #8 of 10 of dexamethasone 6mg daily. s/p convalescent plasma 08/15/20. Incentive raul Albuterol q6h PRN. Mucinex 1200mg BID. procalcitonin negative, < 0.05 sputum culture with multiple bacteria on gram stain, final culture with normal oral karen D dimer is 670, not very high for COVID no response to Lasix challenge on 08/17 more sputum on 08/18, dark yellow, will start on Levofloxacin 750mg IV daily x 5 days, day 3 today, change to PO tomorrow will get two step in the morning and discharge home (2) Acute respiratory failure with hypoxia: 2nd COVID-19 pneumonia. No clinical evidence of PE. Supportive care, steroids he is stable on 4L, no distress or increased work of breathing saturations are higher when laying prone or in lateral position add flutter valve to mobilize sputum, add Levofloxacin hope to get him home tomorrow on home oxygen (3) Prediabetes: HbA1C 5.9% in 12/2019. Dietary control should suffice. Continue T2DM diet. glucose well controlled, no hypoglycemia (4) Hypertension: Continue ARB BPs controlled (5) Hyponatremia: resolved, Na 137 again on 08/18 (6) Elevated AST (SGOT): 2nd to COVID-19 infection. AST and ALT normal (7) BPH NOS w ur obs/LUTS: No symptoms at this time. (8) Insomnia: start melatonin 3mg hs (9) DVT prophylaxis: lovenox 50mg BID due to higher VTE risk with COVID-19 Admission and Anticipated Discharge Date Admission Date: August 13, 2020 Subjective patient feels great, currently laying prone no fever, minimal cough, no dyspnea, he is down to 4L ambulating in the room without difficulty eating well, moving his bowels, making urine plan to get two step tomorrow and go home, he is excited Review of Systems Review of Systems: All systems reviewed & are unremarkable except as noted in Subjective Physical Exam Constitutional: WD/WN, vitals as above Neck: trachea midline, no thyromegaly Respiratory: normal respiratory effort and + cough; no respiratory distress, no labored breathing and not tachypneic Auscultation: lungs clear to auscultation bilaterally; no crackles, no rales, no rhonchi and no wheezes Cardiovascular: RRR, no murmur, no edema Gastrointestinal (Abdomen): normal bowel sounds, soft, nontender, no hepatosplenomegaly Musculoskeletal: no cyanosis or clubbing, extremities motor strength 5/5 Skin: no rashes, warm and dry Neurologic: patellar DTR's 2+ bilat, sensation intact and PERRL, EOMI, accommodation nl, no face palsy, no dysarthria Psychiatric: A+Ox3, euthymic affect Lymphatic: no cervical or axillary lymphadenopathy Results & Data Results & Data ([facility]) Vital Signs (Past 12 Hours) Vital Signs Temp Pulse Pulse Resp BP Pulse Ox 08/20/20 08:00 36.4 C L 76 16 104/67 89 L 08/20/20 06:05 94 08/20/20 05:22 92 08/20/20 01:44 95 08/20/20 00:22 92 08/19/20 23:50 36.5 C 76 76 18 97/63 L 91 08/19/20 23:15 95 Medications Administered Current Inpatient Medications Acetaminophen (Acetaminophen 325 Mg Tab) 650 mg PO Q4H PRN PRN Reason: pain/fever Stop: 09/12/20 16:57 Albuterol (Albuterol Hfa 8 Gm Inhaler) 2 puffs INH Q4R PRN PRN Reason: Shortness Of Breath Or Wheezing Stop: 09/14/20 08:13 Enoxaparin Sodium (Enoxaparin Inj 60 Mg/0.6 Ml Syr) 50 mg SQ BID HARLEEN Stop: 09/13/20 08:59 Last Admin: 08/20/20 10:43 Dose: 50 mg Documented by: Guaifenesin (Guaifenesin 600 Mg Tabcr) 1,200 mg PO Q12 HARLEEN Stop: 09/13/20 20:59 Last Admin: 08/20/20 08:51 Dose: 1,200 mg Documented by: Guaifenesin/Dextromethorphan (Guaifenesin/Dextrom Syrup 100mg/10mg 5ml Udc) 5 ml PO Q6H PRN PRN Reason: Cough Stop: 09/12/20 17:13 Last Admin: 08/15/20 08:50 Dose: 5 ml Documented by: Dexamethasone 6 mg/ Syringe 1.5 mls @ 1 mls/min IV DAILY [facility] Stop: 08/24/20 08:59 Last Admin: 08/20/20 08:51 Dose: 1 mls/min Documented by: Levofloxacin/Dextrose (Levaquin/D5w) 750 mg in 150 mls @ 100 mls/hr IV Q24H HARLEEN; Protocol Stop: 08/25/20 08:29 Last Infusion: 08/20/20 10:21 Dose: Infused Documented by: Losartan Potassium (Losartan Potassium 50 Mg Tab) 50 mg PO QAM [facility] Stop: 09/13/20 08:59 Last Admin: 08/20/20 10:43 Dose: 50 mg Documented by: Melatonin (Melatonin 3 Mg Tab) 3 mg PO HS PRN PRN Reason: Sleep Stop: 09/15/20 18:25 Last Admin: 08/19/20 20:44 Dose: 3 mg Documented by: Ondansetron HCl (Ondansetron Inj 2 Mg/Ml 2 Ml Vial) 4 mg IV Q6H PRN PRN Reason: Nausea Stop: 09/12/20 16:57 Sodium Chloride (Sodium Chloride 0.65% Na Soln 45 Ml ([place])) 2 sprays NA Q1H PRN PRN Reason: nasal congestion Stop: 09/15/20 21:53 Triamcinolone Acetonide (Triamcinolone Acet Nasal [place] 10.8ml Btl) 2 sprays [place] DAILY [facility] Stop: 09/16/20 08:59 Last Admin: 08/20/20 08:52 Dose: 2 sprays Documented by: PG Care Time/CCT Total # of Minutes Spent Total Time Spent with Patient: Total time spent is greater than 50% in coordination of care (as documented) at patient's floor/unit and/or counseling patient: Coding Level of Care Code 80282 Subseq Hosp Care Lvl 2 Diagnoses Pneumonia due to 2019 novel coronavirus U07.1; J12.82 Acute respiratory failure with hypoxia J96.01 Prediabetes R73.03 Hypertension I10 Hypertension type: essential hypertension Hyponatremia E87.1 Elevated AST (SGOT) R74.01 BPH NOS w ur obs/LUTS N40.1 Insomnia G47.09 Insomnia type: other insomnia DVT prophylaxis Z29.9 (1) Hypertension Hypertension type: essential hypertension Qualified Code(s): I10 - Essential (primary) hypertension (2) Insomnia Insomnia type: other insomnia Qualified Code(s): G47.09 - Other insomnia
[2020-08-20] MEDS: MELATONIN 3 MG TAB PO PRN (20:54)
[2020-08-21] MEDS: dexAMETHasone 6 MG in SYRINGE 0 ML IV SCH (08:43)
[2020-08-21] MEDS: TRIAMCINOLONE ACET NASAL SPRAY 10.8ML BTL NAE SCH (08:45)
[2020-08-21] MEDS: LOSARTAN POTASSIUM 50 MG TAB PO SCH (10:22)
[2020-08-21] MEDS: guaiFENesin 600 MG TABCR PO SCH (10:22)
--- NOTE | 2020-08-21 10:51 | Discharge Summary ---
Date of Service August 21, 2020 Admission HPI Per Admitting Provider 65 YOM with past medical history of pre-diabetes, BPH, osteoarthritis, HTN. Patient comes in today for worsening shortness of breath and hypoxia recorded on home pulse ox of 83%. The patient went to [facility] on Monday, and started feeling ill on the 05 of August, with headache, fevers, chills. His shortness of breath has been increasing and he has been recording his pulse oximetry at home with home portable monitor. Reports 83% today and on arrival to the ER he was 88%. The patient is experiencing, non-productive cough, cyclical fevers, joint pains, and headache. He had one episode of diarrhea last night. He has only been taking Tylenol for his fevers, Mucinex, and guaifenesin at home, with mild relief of symptoms. Patient is at day 8 of his symptoms and his first COVID test was today. The patient will be admitted for hypoxia, dexamethasone, offered convalescent plasma. I have spoken to and updated his Neida upon his admission. Principal Diagnosis COVID 19 pneumonia with acute hypoxia Discharge Exam Constitutional WD/WN, vitals as above Neck trachea midline, no thyromegaly Respiratory normal respiratory effort and + cough; no respiratory distress, no labored breathing and not tachypneic Auscultation: lungs clear to auscultation bilaterally; no crackles, no rales, no rhonchi and no wheezes Cardiovascular RRR, no murmur, no edema Gastrointestinal (Abdomen) normal bowel sounds, soft, nontender, no hepatosplenomegaly Musculoskeletal no cyanosis or clubbing, extremities motor strength 5/5 Skin no rashes, warm and dry Neurologic patellar DTR's 2+ bilat, sensation intact and PERRL, EOMI, accommodation nl, no face palsy, no dysarthria Psychiatric A+Ox3, euthymic affect Lymphatic no cervical or axillary lymphadenopathy Discharge Data Allergies Allergy/AdvReac Type Severity Reaction Status Date / Time Sulfa (Sulfonamide Allergy Unknown HIVES ON Verified 08/13/20 09:49 Antibiotics) BACK Consultations 08/13/20 12:59 ED Decision to Admit Stat Hospital Course (1) Pneumonia due to 2019 novel coronavirus: he remains stable, breathing comfortably, no distress at all, no fever/chills, eating and drinking well he continues to lay prone three times a day, using incentive spirometer will add flutter valve to use at least QID to help break up sputum Day #9 of 10 of dexamethasone 6mg daily, complete one more day at home s/p convalescent plasma 08/15/20. Incentive raul Albuterol q6h PRN. Mucinex 1200mg BID. procalcitonin negative, < 0.05 sputum culture with multiple bacteria on gram stain, final culture with normal oral karen D dimer is 670, not very high for COVID no response to Lasix challenge on 08/17 more sputum on 08/18, dark yellow, will start on Levofloxacin 750mg IV daily x 5 days, day 4 today, complete one more day tomorrow 2 step shows he is stable on room air at rest, requires 2L on exertion discharge to home today (2) Acute respiratory failure with hypoxia: 2nd COVID-19 pneumonia. No clinical evidence of PE. Supportive care, steroids he is stable on room air at rest, requires 2L on exertion, no distress or increased work of breathing saturations are higher when laying prone or in lateral position arrange for home oxygen on discharge (3) Prediabetes: HbA1C 5.9% in 12/2019. Dietary control should suffice. Continue T2DM diet. glucose well controlled, no hypoglycemia (4) Hypertension: Continue ARB BPs controlled (5) Hyponatremia: resolved, Na 137 again on 08/18 (6) Elevated AST (SGOT): 2nd to COVID-19 infection. AST and ALT normal (7) BPH NOS w ur obs/LUTS: No symptoms at this time. (8) Insomnia: start melatonin 3mg hs (9) DVT prophylaxis: lovenox 50mg BID due to higher VTE risk with COVID-19 Total Time Total Time Spent Total Time Spent (In Minutes): 33 minutes Total Time Includes: Examination of the Patient, Discharge Planning and Medication Reconciliation Discharge Plan Discharge Items Patient Disposition: Home - Self-Care Reason For Visit: COVID Discharge Diagnosis: COVID 19 pneumonia Acute hypoxic respiratory failure Condition on Discharge: Good Goals: stay well rested and well nourished titrate down off oxygen as tolerated Activity: Resume your previous activity Non-emergency contact: Primary Care Provider Call non-emergency contact if: you have any medication questions Follow-up/Referrals: Elias Ndiaye, DO [Primary Care Provider] - (one week) Diet: Carb Consistent or DM2 Addtl Attending Provider Instructions: Medications: - DEXAMETHASONE: 6mg tomorrow morning, no further treatment needed after that - LEVOFLOXACIN: 750mg daily, only one more dose needed, tomorrow COVID 19 pneumonia, acute hypoxia much improved, down to room air at rest and you need 2L on exertion anticipate that you will need oxygen for about a week stay well nourished, well rested, well hydrated do not need to be on quarantine, but wear a mask as you typically would Pending Studies at Discharge: No Stand-Alone Forms: [facility], Smoking Cessation Medications and DC Order Prescriptions: New levofloxacin 750 mg Tablet 750 mg PO DAILY@1100 1 Days Qty: 1 RF: 0 dexamethasone 4 mg tablet 6 mg PO DAILY 1 Days Qty: 2 RF: 0 Continued losartan 50 mg tablet 50 mg PO QAM Qty: 90 RF: 3 mupirocin 2 % ointment 1 applic TOP BID PRN (Reason: Skin Irritation) RF: 0 Centrum Silver Men 300-600-300 mcg Tablet 1 tab PO QAM RF: 0 Discharge Orders: Discharge Order (Routine); Ordered 08/21/20 Ordered By: Jerry Last Admission Data Admit Date/Time: 08/13/20 13:43 Attending Provider: Jerry Last Admit Provider: Deandra Avalos Primary Care Provider: Elias Ndiaye Other Providers: Deandra Avalos Coding Level of Care Code D/C Day Management >30 mins Diagnoses Pneumonia due to 2019 novel coronavirus U07.1; J12.82 Acute respiratory failure with hypoxia J96.01 Prediabetes R73.03 Hypertension I10 Hypertension type: essential hypertension Hyponatremia E87.1 Elevated AST (SGOT) R74.01 BPH NOS w ur obs/LUTS N40.1 Insomnia G47.09 Insomnia type: other insomnia DVT prophylaxis Z29.9
[2020-08-21] MEDS ORDERED: levoFLOXacin 750 MG TAB PO SCH (11:00)
[2020-08-21] MEDS: ENOXAPARIN INJ 60 MG/0.6 ML SYR SQ SCH (12:12)
== END 2020-08-21 13:32 | disposition home or self-care (01) | DRG 177 ==
LOC: ED 08:29 → SUATTDRO 13:43 → 3E 13:43